=== PATIENT | female | born 1950 | race Caucasian/White ===

== ENCOUNTER 2020-04-03 18:14 | Emergency (ER) | payer MEDICARE, OTHER ==
--- NOTE | 2020-04-03 18:15 | ERPHSYRPT ---
- History of Present Illness Time Seen by Provider: 04/03/20 18:15 Source: patient, EMS Exam Limitations: no limitations Physician History: This is a 69-year-old white female who has a history of hypertension and is an insulin dependent diabetic, and presents with head and facial injuries after she slipped and fell on concrete. Patient was wearing flip-flops on the ground was wet. Patient was brought in to the emergency department by ambulance. Patient had initially requested to go to [facility]. 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 Patient was brought into the emergency department by the ambulance service with a c- collar in place. Patient has obvious hematoma to the right forehead and abrasions of her nose and upper lip. She complains of pain in the left shoulder and right hip and femur. Patient is on Plavix and aspirin. Patient arrives to the emergency department alert and oriented and moving all her extremities. Occurred: just prior to arrival Reason for Fall: slipped Injuries/Pain Location: head, face, neck, upper extremity (Left shoulder), lower extremity (Right hip and upper leg) Loss of Consciousness: no loss of consciousness Severity of Pain-Max: moderate Severity of Pain-Current: moderate Modifying Factors: Improves With: movement Associated Symptoms (Fall): extremity injury, headache, neck pain, shortness of breath (Now resolved), No confusion, No chest pain, No seizures Allergies/Adverse Reactions: ceftriaxone [From Rocephin] Allergy (Severe, Verified 04/03/20 18:32) codeine Allergy (Verified 06/25/13 20:31) diphenhydramine HCl [From Benadryl] Allergy (Verified 06/25/13 20:31) hydromorphone HCl [From Dilaudid] Allergy (Verified 06/25/13 20:31) morphine Adverse Reaction (Mild, Verified 04/03/20 18:32) Home Medications: Furosemide 40 mg [Lasix 40 MG] 40 mg PO DAILY 06/25/13 [History] Gabapentin 300 mg [Neurontin 300 mg] 100 mg PO DAILY 06/25/13 [History] Metformin HCl 1000 mg [Glucophage 1000 MG] 1,000 mg PO BID 06/25/13 [History] Zolpidem Tartrate 10 mg [Ambien 10 MG] 10 mg PO HS 06/25/13 [History] Atorvastatin Calcium [Lipitor] 20 mg PO HS 04/03/20 [History] Clopidogrel Bisulfate [Clopidogrel] 75 mg PO DAILY 04/03/20 [History] Diltiazem HCl [Cardizem LA] 300 mg PO DAILY 04/03/20 [History] Duloxetine HCl 40 mg PO BID 04/03/20 [History] Fluticasone/Umeclidin/Vilanter [Trelegy Ellipta 100-62.5-25] 1 each IH DAILY [History] Hydralazine HCl 50 mg PO Q8H 04/03/20 [History] Insulin NPH Human Isophane [Novolin N] 25 units SQ BID 04/03/20 [History] Isosorbide Mononitrate 30 mg [Imdur 30 MG] 30 mg PO DAILY 04/03/20 [History ] Potassium Chloride 10 Meq Tab* [Klor Con 10 MEQ] 10 meq PO DAILY 04/03/20 [ History] Hx Tetanus, Diphtheria Vaccination/Date Given: (UNKNOWN) Hx Influenza Vaccination/Date Given: Yes Hx Pneumococcal Vaccination/Date Given: Yes Travel Risk - International Travel Have you traveled outside of the country in past 3 weeks: No Have you or anyone close to you been diagnosed with or: No Do your reside in a community with a known COVID-19 case?: Yes If Yes where:: [facility] - Coronavirus Screening Has patient experienced Coronavirus symptoms: No - Review of Systems Constitutional: No Symptoms Eyes: No Symptoms Ears, Nose, & Throat: No Symptoms Respiratory: No Symptoms, Dyspnea (Resolved) Cardiac: No Symptoms Abdominal/Gastrointestinal: No Symptoms Genitourinary Symptoms: No Symptoms Musculoskeletal: Neck Pain (Left shoulder and right hip), Fall, Injury Skin: Other (Hematoma right forehead. Abrasion of her nose and upper lip) Neurological: No Symptoms Psychological: No Symptoms Endocrine: No Symptoms Hematologic/Lymphatic: No Symptoms Immunological/Allergic: No Symptoms All Other Systems: Reviewed and Negative - Past Medical History Pertinent Past Medical History: Yes Neurological History: Stroke, Other Cardiac History: Congestive Heart Failure, Hypertension Respiratory History: COPD Endocrine Medical History: Diabetes Type II Musculoskeletal History: Arthritis Psycho-Social History: Depression Other Medical History: APHASIA - Past Surgical History Past Surgical History: Yes Neuro Surgical History: Other Gastrointestinal: Appendectomy, Cholecystectomy Female Surgical History: Hysterectomy - Social History Smoking Status: Former smoker Exposure to second hand smoke: No Drug Use: none Patient Lives Alone: No - Nursing Vital Signs Nursing Vital Signs: Initial Vital Signs Pulse Rate 78 04/03/20 18:18 Blood Pressure 139/66 04/03/20 18:18 O2 Sat by Pulse Oximetry 95 04/03/20 18:18 Pain Scale Pain Intensity 10 - [place] Coma Score Best Eye Response (Elia): (4) open spontaneously Best Verbal Response (Elia): (5) oriented Best Motor Response (Fayette): (6) obeys commands Elia Total: 15 - Physical Exam General Appearance: mild distress, alert, anxiety, obese Head Injury: contusions, ecchymosis, swelling, tenderness Eye Exam: PERRL/EOMI, eyes nml inspection ENT Exam: airway nml, other (Upper lip abrasion no obvious lacerations) Neck Exam: trachea midline, pain on movement of neck, c-collar in place Respiratory/Chest Exam: normal breath sounds, No chest tenderness, No respiratory distress, No ecchymosis, No crepitus, No rhonchi, No wheezing Cardiovascular Exam: normal heart sounds, regular rate/rhythm, normal peripheral pulses, No murmur Gastrointestinal Exam: soft, normal bowel sounds, No tenderness, No guarding, No rebound Rectal Exam: not done Back Exam: normal inspection, normal range of motion, No CVA tenderness, No vertebral tenderness Extremity Exam: normal inspection, normal range of motion, capillary refill <3 sec, pelvis stable, hip tenderness (Right side), tenderness (Left shoulder and right hip) Neurologic Exam: alert, oriented x 3, cooperative, 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 as 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, normal mood/affect, nml cerebellar function, nml station & gait, sensation nml Skin Exam: abrasion SpO2 Interpretation: normal O2 Delivery: Room Air - Course Nursing assessment & vital signs reviewed: Yes EKG Interpreted by Me: RATE (62), A-fib, Non-specific ST Changes, Other (No comparison EKG available) Ordered Tests: Active Orders 24 hr Category Date Time Status EKG-ER Only STAT Care 04/03/20 18:37 Active IV Insertion STAT Care 04/03/20 18:37 Active CERVICAL SPINE WO CONTRAST [CT] Stat Exams 04/03/20 18:15 Taken CHEST 1 VIEW (PORTABLE) Stat Exams 04/03/20 18:27 Taken FACIAL BONES WO CONTRAST [CT] Stat Exams 04/03/20 18:15 Taken FEMUR Stat Exams 04/03/20 18:16 Taken HEAD WITHOUT CONTRAST [CT] Stat Exams 04/03/20 18:15 Taken HIP UNI (2V) INCL PEL IF DONE Stat Exams 04/03/20 18:16 Taken SHOULDER Routine Exams 04/03/20 19:43 Taken SHOULDER Stat Exams 04/03/20 18:18 Taken CBC W DIFF Stat Lab 04/03/20 19:50 Completed CMP Stat Lab 04/03/20 19:50 Completed PROTIME WITH INR Stat Lab 04/03/20 19:50 Completed TROPONIN Q3H Lab 04/03/20 19:50 Received TROPONIN Q3H Lab 04/03/20 21:45 Ordered Lab/Rad Data: Laboratory Result Diagrams 04/03/20 19:50 04/03/20 19:50 Laboratory Results 04/03/20 04/03/20 04/03/20 Range/Units 19:50 19:50 19:50 WBC 9.0 (4.0-10.5) K/mm3 RBC 4.47 (4.1-5.4) M/mm3 Hgb 12.4 (12.0-16.0) gm/dl Hct 37.7 (35-47) % MCV 84.3 (78-100) fl MCH 27.7 (26-32) pg MCHC 32.9 (32-36) g/dl RDW 15.4 H (11.5-14.0) % Plt Count 250 (150-450) K/mm3 MPV 9.7 (7.5-11.0) fl Gran % 70.7 H (36.0-66.0) % Eos # (Auto) 0.36 (0-0.5) Absolute Lymphs (auto) 1.34 (1.0-4.6) Absolute Monos (auto) 0.89 (0.0-1.3) Lymphocytes % 15.0 L (24.0-44.0) % Monocytes % 9.9 (0.0-12.0) % Eosinophils % 4.0 (0.00-5.0) % Basophils % 0.4 (0.0-0.4) % Absolute Granulocytes 6.33 (1.4-6.9) Basophils # 0.04 (0-0.4) PT 12.0 (9.95-12.35) SECONDS INR 1.06 (0.8-3.0) Sodium 139 (137-145) mmol/L Potassium 4.0 (3.5-5.1) mmol/L Chloride 103 (98-107) mmol/L Carbon Dioxide 31 H (22-30) mmol/L Anion Gap 10.0 (5-15) MEQ/L BUN 16 (7-17) mg/dL Creatinine 0.69 (0.52-1.04) mg/dL Estimated GFR > 60.0 ML/MIN Glucose 121 H (74-106) mg/dL Calcium 8.9 (8.4-10.2) mg/dL Total Bilirubin 0.30 (0.2-1.3) mg/dL AST 17 (14-36) U/L ALT 16 (0-35) U/L Alkaline Phosphatase 74 (38-126) U/L Serum Total Protein 6.2 L (6.3-8.2) g/dL Albumin 3.5 (3.5-5.0) g/dL - Progress Progress: improved, pain not gone completely, re-examined Progress Note: 04/03/20 19:43 Chest x-ray reveals cardiomegaly. There is no acute intrathoracic process. There is no widened mediastinum present. X-ray of the right shoulder reveals no evidence of any acute fracture or dislocation. X-ray of the pelvis reveals no acute fracture or dislocation. X-ray of the right hip reveals no evidence of any acute fracture or dislocation. X-ray of the right femur reveals no acute fracture or dislocation. 04/03/20 20:27 CAT scan of the head reveals no intracranial abnormality. CAT scan of the cervical spine reveals no acute fractures or subluxations. CAT scan of the facial bones reveals no fractures. 04/03/20 20:32 Patient desires medication for pain. However, she is allergic to codeine, morphine, Dilaudid. She is unsure of what she can take. i will give a low dose Demerol with Zofran intravenously Counseled pt/family regarding: lab results, diagnosis, need for follow-up, rad results - Departure Departure Disposition: Home Clinical Impression: Fall, Facial abrasion, Facial hematoma Condition: Stable Critical Care Time: No Referrals: LUIS MENDEZ MD [Primary Care Provider] - Additional Instructions: drink plenty of fluids. take your medications as prescribed. keep all abrasion sites clean with soap and water. cover abrasion sites with antibiotic ointment of choice once daily. follow up with primary doctor for persistent symptoms.
[2020-04-03 20:05] LABS: Absolute Neutrophil Ct (ANC) 6.33 (1.4-6.9); BASOPHIL % 0.4 % (0.0-0.4); Basophil (Absolute #) 0.04 (0-0.4); Eosinophil (Absolute #) 0.36 (0-0.5); Hematocrit 37.7 % (35-47); Hemoglobin 12.4 gm/dl (12.0-16.0); Lymphocyte (Absolute #) 1.34 (1.0-4.6); Mean Cell Volume 84.3 fl (78-100); Mean Corpuscular Hemoglobin 27.7 pg (26-32); Mean Corpuscular Hgb Concent. 32.9 g/dl (32-36); Mean Platelet Volume 9.7 fl (7.5-11.0); Monocyte (Absolute #) 0.89 (0.0-1.3); Monocytes % 9.9 % (0.0-12.0); Neutrophil % 70.7 % (36.0-66.0); Platelet Count 250 K/mm3 (150-450); Red Blood Count 4.47 M/mm3 (4.1-5.4); Red Cell Distribution Width 15.4 % (11.5-14.0)
[2020-04-03 20:17] LABS: INR 1.06 (0.8-3.0)
[2020-04-03 20:25] LABS: ALBUMIN 3.5 g/dL (3.5-5.0); ALKALINE PHOSPHATASE 74 U/L (38-126); BLOOD UREA NITROGEN 16 mg/dL (7-17); CHLORIDE 103 mmol/L (98-107); Calcium 8.9 mg/dL (8.4-10.2); Carbon Dioxide 31 mmol/L (22-30); Creatinine 1 0.69 mg/dL (0.52-1.04); Glucose 121 mg/dL (74-106); SGOT/AST 17 U/L (14-36); SGPT/ALT 16 U/L (0-35); SODIUM 139 mmol/L (137-145); Total Protein 6.2 g/dL (6.3-8.2)
[2020-04-03] MEDS ORDERED: DEMEROL 25MG SYRINGE IV ONE (20:36)
[2020-04-03] MEDS ORDERED: Zofran 4 MG/2 ML VIAL IV ONE (20:36)
[2020-04-03] MEDS ORDERED: DEMEROL 25MG SYRINGE ONE (20:42)
[2020-04-03] MEDS ORDERED: Zofran 4 MG/2 ML VIAL ONE (20:42)
[2020-04-03] MEDS ORDERED: BACIGUENT PACKET TP ONE (21:05)
[2020-04-03] MEDS ORDERED: BACIGUENT PACKET ONE (21:08)
[2020-04-03 21:43] VITALS: BP 143/51; PULSE 60; O2SAT 92
--- NOTE | 2020-04-04 08:36 | XRAY ---
Indication: Right head injury following fall. Multiple contiguous axial images obtained through the head without contrast. Comparison: June 25, 2013. Stable right cerebral aneurysm clipping with large focus right temporoparietal encephalomalacia and overlying craniotomy. No acute intracranial hemorrhage, hydrocephalus, or mass effect. Age-appropriate global atrophy and minimal periventricular degenerative micro-ischemia. Fourth ventricle is midline. Small right frontal scalp hematoma. Remaining bony calvarium intact. Mild mucosal thickening of both ethmoid sinuses and 1.1 cm right maxillary sinus polyp/retention cyst. Remaining visualized paranasal sinuses and mastoid air cells are clear. CT facial bones and CT cervical spine reported separately. Impression: 1. Right frontal scalp hematoma. No underlying fracture or acute intracranial abnormalities. 2. Stable right cerebral aneurysm clipping with right temporoparietal encephalomalacia and craniotomy. 3. Atrophy and degenerative micro-ischemia within normal limits for patient's age. 4. Incidental paranasal sinus disease.
--- NOTE | 2020-04-04 08:38 | XRAY ---
Indication: Right head injury following fall. Multiple contiguous axial images obtained through the facial bones. Sagittal and coronal reformatted images obtained. Comparison: None. A few bilateral dental amalgams produces beam artifact. Small right frontal scalp hematoma. No acute fracture or suspicious bony lesions. Orbits including roof, case, and floors intact. Mild mucosal thickening of both ethmoid sinuses and 1.1 cm right maxillary sinus polyp/retention cyst. Remaining paranasal sinuses and nasal passages are clear. Mild nasal septal deviation to the left and small right middle turbinate teagan bullosa. Visualized noncontrasted soft tissues are unremarkable. CT head and CT cervical spine reported separately. Impression: 1. Right frontal scalp hematoma. No facial bone fracture. 2. Incidental paranasal sinus disease, nasal septal deviation, and right middle turbinate teagan bullosa.
--- NOTE | 2020-04-04 08:40 | XRAY ---
Indication: Right head injury following fall. Multiple contiguous axial images obtained through the cervical spine. Sagittal and coronal reformatted images obtained. Comparison: None. Axial images negative for acute fracture, suspicious bony lesions, or spinal canal stenosis. Mild/moderate C3-C7 degenerative endplate spurring. Also mild multilevel bilateral degenerative facet hypertrophy. Sagittal and coronal reformatted images demonstrate normal alignment with mild C5-T1 disc space narrowing. No acute compression fracture, subluxation, or jumped facet. Normal appearing craniocervical junction. Visualized noncontrasted soft tissues demonstrates scattered carotid calcifications bilaterally, mild enlarged heterogeneous thyroid gland, and partially visualized left pacemaker leads. Lung apices are clear. CT head and CT facial bones reported separately. Impression: 1. Negative acute fracture/subluxation. 2. Multilevel degenerative changes and mildly enlarged heterogeneous thyroid gland.
--- NOTE | 2020-04-04 08:44 | XRAY ---
Indication: Status post fall. Comparison: June 25, 2013. Portable apical lordotic chest again demonstrates borderline cardiomegaly, left pacemaker, lingula infiltrate/atelectasis, right midlung fibrosis/scarring, and a few calcified granulomas. Remaining heart and lungs unremarkable. Bony thorax intact again with mild osteopenia and degenerative changes.
--- NOTE | 2020-04-04 08:45 | XRAY ---
Indication: Pain following fall. Comparison: None 3 view left shoulder demonstrates osteopenia, mild AC degenerative arthropathy, minimal left carotid calcifications, and partially visualized pacemaker/leads. No other bony, articular, or soft tissue abnormalities.
--- NOTE | 2020-04-04 08:47 | XRAY ---
Indication: Pain following fall. Comparison: None 2 view right femur demonstrates mild osteopenia, minimal greater trochanter spurring, mild/moderate tricompartmental knee degenerative changes, and mild scattered vascular calcifications. No other bony, articular, or soft tissue abnormalities.
--- NOTE | 2020-04-04 08:49 | XRAY ---
Indication: Pain following fall. Comparison: None AP pelvis and 2 view right hip demonstrates mild osteopenia, minimal bilateral greater trochanter spurring, mild/moderate lumbar degenerative spondylosis, and mild scattered vascular calcifications. No other bony, articular, or soft tissue abnormalities.
--- NOTE | 2020-04-04 08:49 | XRAY ---
Indication: Pain following fall. Comparison: None 3 view right shoulder demonstrates mild osteopenia, moderate AC degenerative arthropathy with inferior spurring, and a few right lung calcified granulomas. No other bony, articular, or soft tissue abnormalities.
== END 2020-04-03 21:56 | disposition home or self-care (01) ==
LOC: ED 18:14
DX: S00.31XA Abrasion of nose, initial encounter (principal); S00.511A Abrasion of lip, initial encounter; S00.81XA Abrasion of other part of head, initial encounter; W01.198A Fall on same level from slipping, tripping and stumbling with subsequent striking against other object, initial encounter; Y92.9 Unspecified place or not applicable; I10 Essential (primary) hypertension; Z79.82 Long term (current) use of aspirin; R51 Headache; M54.2 Cervicalgia; M25.512 Pain in left shoulder; M25.551 Pain in right hip; F32.9 Major depressive disorder, single episode, unspecified; I50.9 Heart failure, unspecified; J44.9 Chronic obstructive pulmonary disease, unspecified; M19.90 Unspecified osteoarthritis, unspecified site; E11.9 Type 2 diabetes mellitus without complications; Z79.899 Other long term (current) drug therapy
CPT/HCPCS: 36415; 70450; 70486; 71045; 72125; 73030; 73502; 73552; 80053; 84484; 85025; 85610; 93005; 96374; 96375; 99284; J2175; J2405; A9270-GY

== ENCOUNTER 2021-08-09 14:22 | Inpatient (IN) | payer MEDICARE, OTHER ==
[2021-08-09 15:06] LABS: Appearance SLIGHTLY CLOUDY (CLEAR); Bilirubin NEGATIVE (NEGATIVE); Blood NEGATIVE Ery/ul (0-5); Epithelial Cells RARE /HPF (FEW); Glucose NEGATIVE (NEGATIVE); Ketones NEGATIVE (NEGATIVE); Leukocyte Esterase NEGATIVE (NEGATIVE); Nitrite NEGATIVE (NEGATIVE); Protein,Urine Dip NEGATIVE (Negative); Specific Gravity 1.017 (1.005-1.025); Urobilinogen 4 mg/dL (0-1)
[2021-08-09 15:19] LABS: Amphetamine,Urine NEGATIVE (NEGATIVE); Barbiturate,Urine NEGATIVE (NEGATIVE); Benzodiazepine,Urine NEGATIVE (NEGATIVE); Cocaine,Urine NEGATIVE (NEGATIVE); Methadone,Urine NEGATIVE (NEGATIVE); Opiate,Urine NEGATIVE (NEGATIVE); PCP,Urine NEGATIVE (NEGATIVE); THC,Urine NEGATIVE (NEGATIVE)
--- NOTE | 2021-08-09 15:22 | ERPHSYRPT ---
- History of Present Illness Time Seen by Provider: 08/09/21 15:20 Source: patient Exam Limitations: no limitations Patient Subjective Stated Complaint: here for lower back pain and lung pain Triage Nursing Assessment: pt alert, arrived per ambulance for lower back she denies any injury and states its chronic she also states lung pain but denies sob or cough Physician History: Patient is 70-year-old female with significant past medical history of hypertension diabetes came to the emergency room with multiple problems including lung pain generalized body pain shortness of breath and not feeling well. She is unable to define exact location of pain. She denies any fever nausea vomiting diarrhea constipation chest pain headache dizziness. Timing/Duration: day(s) (few days) Severity: moderate Associated Symptoms: denies symptoms Allergies/Adverse Reactions: ceftriaxone [From Rocephin] Allergy (Severe, Verified 08/09/21 14:27) codeine Allergy (Verified 08/09/21 14:27) diphenhydramine HCl [From Benadryl] Allergy (Verified 08/09/21 14:27) hydromorphone HCl [From Dilaudid] Allergy (Verified 08/09/21 14:27) morphine Adverse Reaction (Mild, Verified 08/09/21 14:27) Home Medications: Furosemide 40 mg [Lasix 40 MG] 40 mg PO DAILY 06/25/13 [History] Metformin HCl 1000 mg [Glucophage 1000 MG] 1,000 mg PO BID 06/25/13 [History] Zolpidem Tartrate 10 mg [Ambien 10 MG] 10 mg PO HS 06/25/13 [History] Atorvastatin Calcium [Lipitor] 20 mg PO HS 04/03/20 [History] Clopidogrel Bisulfate [Clopidogrel] 75 mg PO DAILY 04/03/20 [History] Diltiazem HCl [Cardizem LA] 300 mg PO DAILY 04/03/20 [History] Duloxetine HCl 40 mg PO BID 04/03/20 [History] Fluticasone/Umeclidin/Vilanter [Trelegy Ellipta 100-62.5-25] 1 each IH DAILY 04/03/20 [History] Hydralazine HCl 50 mg PO Q8H 04/03/20 [History] Insulin NPH Human Isophane [Novolin N] 25 units SQ BID 04/03/20 [History] Isosorbide Mononitrate 30 mg [Imdur 30 MG] 30 mg PO DAILY 04/03/20 [History] Potassium Chloride 10 Meq Tab* [Klor Con 10 MEQ] 10 meq PO DAILY 04/03/20 [History] Hx Tetanus, Diphtheria Vaccination/Date Given: (UNKNOWN) Hx Influenza Vaccination/Date Given: Yes Hx Pneumococcal Vaccination/Date Given: Yes Travel Risk - International Travel Have you traveled outside of the country in past 3 weeks: No - Coronavirus Screening Are you exhibiting any of the following symptoms?: No Close contact with a COVID-19 positive Pt in past 14-21 Days: No - Vaccine Status Have you recieved a Covid-19 vaccination: Yes [employer]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 Dates if Unknown: ? - Review of Systems Constitutional: Lethargy, Malaise, Weakness Eyes: No Symptoms Ears, Nose, & Throat: No Symptoms Respiratory: No Cough, No Dyspnea, No Dyspnea on Exertion (EATON) Cardiac: No Chest Pain, No Edema, No Syncope Abdominal/Gastrointestinal: No Abdominal Pain, No Nausea, No Vomiting, No Diarrhea Genitourinary Symptoms: No Dysuria Musculoskeletal: Back Pain, Myalgias, No Neck Pain, No Deformity, No Fall Skin: No Symptoms, No Rash Neurological: Lethargy, No Dizziness, No Focal Weakness, No Sensory Changes Psychological: No Symptoms Endocrine: No Symptoms Hematologic/Lymphatic: No Symptoms Immunological/Allergic: No Symptoms All Other Systems: Reviewed and Negative - Past Medical History Pertinent Past Medical History: Yes Neurological History: Stroke, Other Cardiac History: Congestive Heart Failure, Hypertension Respiratory History: COPD Endocrine Medical History: Diabetes Type II Musculoskeletal History: Arthritis Psycho-Social History: Depression Other Medical History: APHASIA - Past Surgical History Past Surgical History: Yes Neuro Surgical History: Other Gastrointestinal: Appendectomy, Cholecystectomy Female Surgical History: Hysterectomy - Social History Smoking Status: Former smoker Exposure to second hand smoke: No Drug Use: none Patient Lives Alone: No - Female History Hx Last Menstrual Period: post Hx Now: No - Nursing Vital Signs Nursing Vital Signs: Initial Vital Signs Temperature 98.5 F 08/09/21 14:23 Pulse Rate 78 08/09/21 14:23 Respiratory Rate 20 08/09/21 14:23 Blood Pressure 174/105 08/09/21 14:23 O2 Sat by Pulse Oximetry 93 L 08/09/21 14:23 Pain Scale Pain Intensity [] 10 Pain Intensity 6 - Physical Exam General Appearance: mild distress, alert Eye Exam: PERRL/EOMI, eyes nml inspection Ears, Nose, Throat Exam: normal ENT inspection, TMs normal, pharynx normal, moist mucous membranes Neck Exam: normal inspection, non-tender, supple, full range of motion Respiratory Exam: diminished breath sounds, crackles/rales, rhonchi, wheezing, No respiratory distress Cardiovascular Exam: regular rate/rhythm, normal heart sounds, normal peripheral pulses Gastrointestinal/Abdomen Exam: soft, normal bowel sounds, No tenderness, No mass Back Exam: normal inspection, normal range of motion, No CVA tenderness, No vertebral tenderness Extremity Exam: normal inspection, normal range of motion, pelvis stable Neurologic Exam: alert, oriented x 3, cooperative, No motor deficits Skin Exam: normal color, warm, dry, No rash Lymphatic Exam: No adenopathy SpO2 Interpretation: borderline oxygenation SpO2: 93 O2 Delivery: Room Air - Course Nursing assessment & vital signs reviewed: Yes - Radiology Exams Chest X-ray Interpretation: Reviewed by me Ordered Tests: Active Orders 24 hr Category Date Time Status CHEST 1 VIEW (PORTABLE) Stat Exams 08/09/21 15:38 Taken CBC W DIFF Stat Lab 08/09/21 15:10 Completed CMP Stat Lab 08/09/21 15:10 Completed UA W/RFX UR CULTURE Stat Lab 08/09/21 15:01 Completed Urine Triage Profile Stat Lab 08/09/21 15:01 Completed Transfer Order Routine Transfer 08/09/21 Ordered Medication Summary Generic Name Dose Route Start Last Admin Trade Name Freq PRN Reason Stop Dose Admin Levofloxacin/Dextrose 500 mg in 100 mls @ 100 mls/hr 08/09/21 16:05 08/09/21 16:22 Levofloxacin 500mg/100ml D5w IV 08/09/21 17:04 100 mls/hr STAT STA 100 mls/hr Administration Discontinued Medications Generic Name Dose Route Start Last Admin Trade Name Freq PRN Reason Stop Dose Admin Levofloxacin/Dextrose Confirm 08/09/21 16:22 Levofloxacin 500mg/100ml D5w Administered 08/09/21 16:23 Dose 500 mg in 100 mls @ ud IV .[facility] Lab/Rad Data: Laboratory Result Diagrams 08/09/21 15:10 08/09/21 15:10 Laboratory Results 08/09/21 08/09/21 08/09/21 Range/Units 15:10 15:10 15:01 WBC 16.4 H (4.0-10.5) K/mm3 RBC 4.55 (4.1-5.4) M/mm3 Hgb 12.0 (12.0-16.0) gm/dl Hct 38.3 (35-47) % MCV 84.2 (78-100) fl MCH 26.4 (26-32) pg MCHC 31.3 L (32-36) g/dl RDW 16.2 H (11.5-14.0) % Plt Count 222 (150-450) K/mm3 MPV 9.4 (7.5-11.0) fl Gran % 83.2 H (36.0-66.0) % Eos # (Auto) 0.09 (0-0.5) Absolute Lymphs (auto) 1.05 (1.0-4.6) Absolute Monos (auto) 1.61 H (0.0-1.3) Lymphocytes % 6.4 L (24.0-44.0) % Monocytes % 9.8 (0.0-12.0) % Eosinophils % 0.5 (0.00-5.0) % Basophils % 0.1 (0.0-0.4) % Absolute Granulocytes 13.66 H (1.4-6.9) Basophils # 0.02 (0-0.4) Sodium 139 (137-145) mmol/L Potassium 3.6 (3.5-5.1) mmol/L Chloride 98 (98-107) mmol/L Carbon Dioxide 35 H (22-30) mmol/L Anion Gap 9.6 (5-15) MEQ/L BUN 19 H (7-17) mg/dL Creatinine 0.93 (0.52-1.04) mg/dL Estimated GFR > 60.0 ML/MIN Glucose 92 (74-106) mg/dL Calcium 9.2 (8.4-10.2) mg/dL Total Bilirubin 0.60 (0.2-1.3) mg/dL AST 24 (14-36) U/L ALT 18 (0-35) U/L Alkaline Phosphatase 66 (38-126) U/L Serum Total Protein 6.7 (6.3-8.2) g/dL Albumin 3.9 (3.5-5.0) g/dL Urine Color (YELLOW) Urine Appearance (CLEAR) Urine pH (5-6) Ur Specific [place] (1.005-1.025) Urine Protein (Negative) Urine Ketones (NEGATIVE) Urine Blood (0-5) [place]/ul Urine Nitrite (NEGATIVE) Urine Bilirubin (NEGATIVE) Urine Urobilinogen (0-1) mg/dL Ur Leukocyte Esterase (NEGATIVE) Urine WBC (Auto) (0-5) /HPF Urine RBC (Auto) (0-2) /HPF U Epithel Cells (Auto) (FEW) /HPF Urine Bacteria (Auto) (NEGATIVE) /HPF Urine Culture Reflexed (NO) Urine Glucose (NEGATIVE) mg/dL Urine Opiates Level NEGATIVE (NEGATIVE) Ur Methadone NEGATIVE (NEGATIVE) Urine Barbiturates NEGATIVE (NEGATIVE) Ur Phencyclidine (PCP) NEGATIVE (NEGATIVE) Urine Amphetamine NEGATIVE (NEGATIVE) U Benzodiazepine Level NEGATIVE (NEGATIVE) Urine Cocaine NEGATIVE (NEGATIVE) Urine Marijuana (THC) NEGATIVE (NEGATIVE) Slides for Path Review YES 08/09/21 Range/Units 15:01 WBC (4.0-10.5) K/mm3 RBC (4.1-5.4) M/mm3 Hgb (12.0-16.0) gm/dl Hct (35-47) % MCV (78-100) fl MCH (26-32) pg MCHC (32-36) g/dl RDW (11.5-14.0) % Plt Count (150-450) K/mm3 MPV (7.5-11.0) fl Gran % (36.0-66.0) % Eos # (Auto) (0-0.5) Absolute Lymphs (auto) (1.0-4.6) Absolute Monos (auto) (0.0-1.3) Lymphocytes % (24.0-44.0) % Monocytes % (0.0-12.0) % Eosinophils % (0.00-5.0) % Basophils % (0.0-0.4) % Absolute Granulocytes (1.4-6.9) Basophils # (0-0.4) Sodium (137-145) mmol/L Potassium (3.5-5.1) mmol/L Chloride (98-107) mmol/L Carbon Dioxide (22-30) mmol/L Anion Gap (5-15) MEQ/L BUN (7-17) mg/dL Creatinine (0.52-1.04) mg/dL Estimated GFR ML/MIN Glucose (74-106) mg/dL Calcium (8.4-10.2) mg/dL Total Bilirubin (0.2-1.3) mg/dL AST (14-36) U/L ALT (0-35) U/L Alkaline Phosphatase (38-126) U/L Serum Total Protein (6.3-8.2) g/dL Albumin (3.5-5.0) g/dL Urine Color YELLOW (YELLOW) Urine Appearance SLIGHTLY CLOUDY (CLEAR) Urine pH 5.0 (5-6) Ur Specific [place] 1.017 (1.005-1.025) Urine Protein NEGATIVE (Negative) Urine Ketones NEGATIVE (NEGATIVE) Urine Blood NEGATIVE (0-5) [place]/ul Urine Nitrite NEGATIVE (NEGATIVE) Urine Bilirubin NEGATIVE (NEGATIVE) Urine Urobilinogen 4 (0-1) mg/dL Ur Leukocyte Esterase NEGATIVE (NEGATIVE) Urine WBC (Auto) NONE (0-5) /HPF Urine RBC (Auto) NONE (0-2) /HPF U Epithel Cells (Auto) RARE (FEW) /HPF Urine Bacteria (Auto) NONE (NEGATIVE) /HPF Urine Culture Reflexed NO (NO) Urine Glucose NEGATIVE (NEGATIVE) mg/dL Urine Opiates Level (NEGATIVE) Ur Methadone (NEGATIVE) Urine Barbiturates (NEGATIVE) Ur Phencyclidine (PCP) (NEGATIVE) Urine Amphetamine (NEGATIVE) U Benzodiazepine Level (NEGATIVE) Urine Cocaine (NEGATIVE) Urine Marijuana (THC) (NEGATIVE) Slides for Path Review - Progress Progress: unchanged Discussed with : Russell Will see patient in: hospital (observation) Counseled pt/family regarding: lab results, diagnosis, need for follow-up, rad results - Departure Departure Disposition: Observation Clinical Impression: Pneumonia Qualifiers: Pneumonia type: due to group B Streptococcus Laterality: right Lung location: upper lobe of lung Qualified Code(s): J15.3 - Pneumonia due to streptococcus, group B Condition: Fair Critical Care Time: Yes Critical Care Time(excluding separately billable procedures): Critical 30-74 mins Referrals: LUIS MENDEZ MD [Primary Care Provider] - Instructions: Pneumonia, Adult (DC)
[2021-08-09 15:32] LABS: Absolute Neutrophil Ct (ANC) 13.66 (1.4-6.9); BASOPHIL % 0.1 % (0.0-0.4); Basophil (Absolute #) 0.02 (0-0.4); Eosinophil % 0.5 % (0.00-5.0); Eosinophil (Absolute #) 0.09 (0-0.5); Hematocrit 38.3 % (35-47); Lymphocyte (Absolute #) 1.05 (1.0-4.6); Lymphocytes % 6.4 % (24.0-44.0); Mean Cell Volume 84.2 fl (78-100); Mean Corpuscular Hemoglobin 26.4 pg (26-32); Mean Corpuscular Hgb Concent. 31.3 g/dl (32-36); Mean Platelet Volume 9.4 fl (7.5-11.0); Monocyte (Absolute #) 1.61 (0.0-1.3); Monocytes % 9.8 % (0.0-12.0); Neutrophil % 83.2 % (36.0-66.0); Platelet Count 222 K/mm3 (150-450); Red Blood Count 4.55 M/mm3 (4.1-5.4); Red Cell Distribution Width 16.2 % (11.5-14.0); White Blood Count 16.4 K/mm3 (4.0-10.5)
[2021-08-09 15:42] LABS: ALBUMIN 3.9 g/dL (3.5-5.0); ALKALINE PHOSPHATASE 66 U/L (38-126); ANION GAP 9.6 MEQ/L (5-15); BLOOD UREA NITROGEN 19 mg/dL (7-17); CHLORIDE 98 mmol/L (98-107); Calcium 9.2 mg/dL (8.4-10.2); Carbon Dioxide 35 mmol/L (22-30); Creatinine 1 0.93 mg/dL (0.52-1.04); EST GLOMERULAR FILTRATION RATE > 60.0 ML/MIN; Glucose 92 mg/dL (74-106); Potassium 3.6 mmol/L (3.5-5.1); SGOT/AST 24 U/L (14-36); SGPT/ALT 18 U/L (0-35); SODIUM 139 mmol/L (137-145); Total Protein 6.7 g/dL (6.3-8.2)
[2021-08-09 16:01] LABS: Slide Review 1 YES
[2021-08-09] MEDS ORDERED: Levofloxacin 500MG/100ML D5W 500 MG/100 ML BAG IV STA (16:05)
[2021-08-09] MEDS ORDERED: Levofloxacin 500MG/100ML D5W 500 MG/100 ML BAG IV ONE (16:22)
[2021-08-09 16:44] LABS: INFLUENZA A NEGATIVE (NEGATIVE); INFLUENZA B NEGATIVE (NEGATIVE); RESPIRATORY SYNCTIAL VIRUS NEGATIVE (Negative); SARS-CoV-2 Xpert Express NEGATIVE (NEGATIVE)
[2021-08-09] MEDS ORDERED: Sodium Chloride 0.9% 1000 ML 1,000 ML IV SCH (17:12)
[2021-08-09] MEDS: TYLENOL 325 MG PO PRN (17:30)
[2021-08-09] MEDS ORDERED: DUONEB 0.5-3 MG/3 ml Neb IH ONE (17:31)
[2021-08-09] MEDS: DUONEB 0.5-3 MG/3 ml Neb IH SCH ×2 (17:33→22:12)
[2021-08-09 18:03] LABS: A-aADO2 138; ABG HEMOGLOBIN 12.3; ABG POTASSIUM 3.3 (3.5-5.1); ABG SITE RIGHT BRACHIAL; ARTERIAL BLD GAS O2 SATURATION 93.6 % (95-100); ARTERIAL BLOOD GAS BASE EXCESS 7.2 (-2.0-2.0); ARTERIAL BLOOD GAS FIO2 36 %; ARTERIAL BLOOD GAS PCO2 48 mmHg (35-45); ARTERIAL BLOOD GAS PO2 59 mmHg (75-100); ARTERIAL BLOOD GAS pH 7.44 (7.35-7.45); CARBOXYHEMOGLOBIN 1.6 % THgb (0.0-6.9); HCO3- 32.6 (22-28); HGB O2 SAT 91.4 g/dF (94-100); Methhemoglobin 0.7 % (1.4-1.5)
[2021-08-09] MEDS: Ativan 2 MG/1 ML VIAL IV PRN ×3 (18:10→23:45)
[2021-08-09] MEDS ORDERED: Advair Hfa 115/21 Common canister IH SCH (19:00)
[2021-08-10] MEDS: Ativan 2 MG/1 ML VIAL IV PRN ×5 (01:54→21:43)
[2021-08-10] MEDS ORDERED: SUBLIMAZE 100 MCG/2 ML IV PRN (02:28)
[2021-08-10] MEDS: DUONEB 0.5-3 MG/3 ml Neb IH SCH ×2 (02:30→07:02)
[2021-08-10 03:07] LABS: A-aADO2 164; ABG HEMOGLOBIN 11.5; ABG POTASSIUM 3.2 (3.5-5.1); ABG SITE RIGHT BRACHIAL; ARTERIAL BLD GAS O2 SATURATION 98.5 % (95-100); ARTERIAL BLD GAS TIDAL VOLUME 500 cc; ARTERIAL BLOOD GAS FIO2 45 %; ARTERIAL BLOOD GAS PCO2 54 mmHg (35-45); ARTERIAL BLOOD GAS PO2 89 mmHg (75-100); ARTERIAL BLOOD GAS VENT MODE AVAPS; ARTERIAL BLOOD GAS VENT RATE 18 /MIN; CARBOXYHEMOGLOBIN 1.4 % THgb (0.0-6.9); HCO3- 33.4 (22-28); HGB O2 SAT 96.4 g/dF (94-100); Methhemoglobin 0.7 % (1.4-1.5)
[2021-08-10 05:38] LABS: Hematocrit 35.9 % (35-47); Hemoglobin 11.5 gm/dl (12.0-16.0); Mean Cell Volume 83.9 fl (78-100); Mean Corpuscular Hemoglobin 26.9 pg (26-32); Mean Platelet Volume 9.6 fl (7.5-11.0); Platelet Count 195 K/mm3 (150-450); Red Blood Count 4.28 M/mm3 (4.1-5.4); Red Cell Distribution Width 16.1 % (11.5-14.0)
[2021-08-10 05:53] LABS: ANION GAP 10.2 MEQ/L (5-15); BLOOD UREA NITROGEN 18 mg/dL (7-17); CHLORIDE 96 mmol/L (98-107); Calcium 8.4 mg/dL (8.4-10.2); Carbon Dioxide 33 mmol/L (22-30); Creatinine 1 0.95 mg/dL (0.52-1.04); EST GLOMERULAR FILTRATION RATE > 60.0 ML/MIN; Glucose 177 mg/dL (74-106); Potassium 3.2 mmol/L (3.5-5.1); SODIUM 135 mmol/L (137-145)
[2021-08-10 05:59] LABS: White Blood Count 34.5 K/mm3 (4.0-10.5)
[2021-08-10 06:25] LABS: Slide Review YES
[2021-08-10] MEDS ORDERED: PHARMACY DOSING REQUEST MC ONE (06:31)
[2021-08-10] MEDS ORDERED: PHARMACY DOSING REQUIRED: VANCOMYCIN IV STA (06:31)
[2021-08-10] MEDS ORDERED: Ativan 2 MG/1 ML VIAL IV PRN (06:51)
[2021-08-10] MEDS ORDERED: VANCOMYCIN 1 GRAM/200 ML BAG 1 GM/200 ML PIGGYBACK IV ONE (07:00)
[2021-08-10] MEDS: PULMICORT 0.5 MG/2 ML RESPULES IH SCH ×2 (07:03→20:16)
[2021-08-10] MEDS: Zosyn 2.25 GM 2.25 GM in Sodium Chloride 100ML MINI-BAG PLUS 100 ML IV SCH ×3 (08:09→17:13)
--- NOTE | 2021-08-10 08:40 | XRAY ---
Indication: Cough and short of breath. History "blood clots in chest." Multiple contiguous axial images obtained through the chest using 100 cc Isovue 370 contrast and PE protocol. Comparison: None There is satisfactory opacification of the pulmonary arteries to include the lobar and segmental branches. However mild respiration artifact limits evaluation of the more distal lobar and segmental branches. No obvious central pulmonary embolus. Heart is enlarged with left-sided dual-lead pacemaker. Aorta demonstrates minimal arteriosclerotic calcifications without aneurysm/dissection. No pathologic mediastinal/hilar lymphadenopathy. Small hiatal hernia. Lungs demonstrates 5.6 x 4.8 x 5.2 cm noncalcified right upper lobe masslike opacity with irregular margins. Mild bibasilar subsegmental atelectasis/scarring and small right upper lobe calcified granuloma. No effusion. Bony thorax intact with mild osteopenia and mild/moderate degenerative changes throughout the spine. Limited upper abdomen demonstrates fatty liver and tiny hepatic/splenic calcified granulomas. Indeterminant 1.8 x 2.5 cm noncalcified left adrenal gland mass. Impression: 1. Respiration artifact limits evaluation for pulmonary embolus. No obvious central pulmonary embolus. 2. Large right upper lobe masslike opacity. PET/CT may yield further information. 3. Indeterminant left adrenal gland mass. Metastasis not completely excluded given right upper lobe masslike opacity. 4. Incidental fatty liver, chronic bony findings, and old granulomatous disease. Comment: Preliminary interpretation made by [facility]. No critical discrepancy.
--- NOTE | 2021-08-10 08:42 | XRAY ---
Indication: Short of breath and weakness. Comparison: April 03, 2020. Portable chest demonstrates new 4.5 cm right upper lobe masslike opacity. Stable small right upper lobe calcified granuloma, cardiomegaly, and left dual-lead pacemaker. Bony thorax intact again with osteopenia and degenerative changes.
--- NOTE | 2021-08-10 08:43 | XRAY ---
Indication: Short of breath and weakness. Comparison: One day earlier. Portable chest unchanged again demonstrating 4.5 cm right upper lobe masslike opacity, small right upper lobe calcified granuloma, cardiomegaly, and left dual-lead pacemaker. No new cardiopulmonary abnormalities..
[2021-08-10] MEDS ORDERED: Levofloxacin 500MG/100ML D5W 500 MG/100 ML BAG IV SCH (10:00)
[2021-08-10] MEDS ORDERED: ENOXAPARIN SODIUM SQ SCH (10:00)
[2021-08-10] MEDS: SUBLIMAZE 100 MCG/2 ML IV PRN ×4 (10:14→21:38)
[2021-08-10] MEDS: Sodium Chloride 0.9% W/ 20 mEq KCl/LITER 1,000 ML IV SCH ×2 (10:14→23:17)
[2021-08-10] MEDS ORDERED: NON-FORMULARY ITEM (Hydralazine Hcl [Hydralazine Hcl] 50 MG) PO SCH (10:15)
[2021-08-10] MEDS: Klor Con 10 MEQ PO SCH ×2 (10:26→22:12)
[2021-08-10] MEDS: Novolin N SQ SCH (10:26)
[2021-08-10] MEDS: BUSPAR 5 MG PO SCH (10:26)
[2021-08-10] MEDS: ECOTRIN 81 MG PO SCH (10:26)
[2021-08-10] MEDS: Toprol Xl 50 MG PO SCH (10:27)
[2021-08-10] MEDS ORDERED: DUONEB 0.5-3 MG/3 ml Neb IH ONE (10:47)
[2021-08-10] MEDS ORDERED: PULMICORT 0.5 MG/2 ML RESPULES IH SCH (11:00)
[2021-08-10] MEDS ORDERED: SODIUM CHLORIDE 0.9% IV ONE (11:00)
[2021-08-10] MEDS ORDERED: VANCOCIN IV ONE (11:00)
[2021-08-10] MEDS: Apresoline 25 MG TABLET PO SCH ×2 (11:15→16:42)
[2021-08-10] MEDS: Lidoderm Patch 5% TOP SCH (11:15)
[2021-08-10] MEDS: hydroDIURIL 25 MG PO SCH (11:15)
[2021-08-10] MEDS: solu-MEDROL IV SCH (17:56)
[2021-08-10] MEDS: Desyrel 150 MG PO SCH (22:12)
[2021-08-11] MEDS: Zosyn 2.25 GM 2.25 GM in Sodium Chloride 100ML MINI-BAG PLUS 100 ML IV SCH ×5 (00:07→23:36)
[2021-08-11] MEDS: Apresoline 25 MG TABLET PO SCH ×5 (00:20→23:34)
[2021-08-11] MEDS: solu-MEDROL IV SCH ×3 (01:59→18:49)
[2021-08-11 05:41] LABS: Hematocrit 36.7 % (35-47); Hemoglobin 11.6 gm/dl (12.0-16.0); Mean Cell Volume 85.3 fl (78-100); Mean Corpuscular Hgb Concent. 31.6 g/dl (32-36); Mean Platelet Volume 9.8 fl (7.5-11.0); Platelet Count 191 K/mm3 (150-450); Red Cell Distribution Width 16.5 % (11.5-14.0)
[2021-08-11 05:56] LABS: ANION GAP 8.3 MEQ/L (5-15); BLOOD UREA NITROGEN 24 mg/dL (7-17); CHLORIDE 100 mmol/L (98-107); Calcium 8.5 mg/dL (8.4-10.2); Carbon Dioxide 33 mmol/L (22-30); Creatinine 1 0.89 mg/dL (0.52-1.04); EST GLOMERULAR FILTRATION RATE > 60.0 ML/MIN; Glucose 177 mg/dL (74-106); Potassium 3.8 mmol/L (3.5-5.1); SODIUM 138 mmol/L (137-145)
[2021-08-11 06:27] LABS: A-aADO2 177; ABG HEMOGLOBIN 11.4; ABG POTASSIUM 3.8 (3.5-5.1); ARTERIAL BLD GAS TIDAL VOLUME 500 cc; ARTERIAL BLOOD GAS BASE EXCESS 3.6 (-2.0-2.0); ARTERIAL BLOOD GAS FIO2 45 %; ARTERIAL BLOOD GAS PO2 68 mmHg (75-100); ARTERIAL BLOOD GAS pH 7.32 (7.35-7.45); CARBOXYHEMOGLOBIN 1.4 % THgb (0.0-6.9); HCO3- 31.4 (22-28); HGB O2 SAT 94.4 g/dF (94-100); Methhemoglobin 0.3 % (1.4-1.5)
[2021-08-11 06:28] LABS: ABG SITE RIGHT RADIAL; ALLEN TEST OK? YES; ARTERIAL BLOOD GAS PCO2 61 mmHg (35-45)
[2021-08-11] MEDS: DUONEB 0.5-3 MG/3 ml Neb IH PRN (07:19)
[2021-08-11] MEDS: PULMICORT 0.5 MG/2 ML RESPULES IH SCH ×2 (07:19→19:34)
[2021-08-11] MEDS: hydroDIURIL 25 MG PO SCH (09:49)
[2021-08-11] MEDS: Klor Con 10 MEQ PO SCH ×2 (09:49→22:36)
[2021-08-11] MEDS: Protonix 20MG Tablet PO SCH (09:49)
[2021-08-11] MEDS: ECOTRIN 81 MG PO SCH (09:50)
[2021-08-11] MEDS: BUSPAR 5 MG PO SCH (09:50)
[2021-08-11] MEDS: Toprol Xl 50 MG PO SCH (09:50)
[2021-08-11] MEDS ORDERED: LIDOCAINE TP SCH (10:00)
[2021-08-11] MEDS ORDERED: NON-FORMULARY ITEM (Chlorthalidone [Chlorthalidone] 25 MG) PO SCH (10:00)
[2021-08-11] MEDS: Sodium Chloride 0.9% W/ 20 mEq KCl/LITER 1,000 ML IV SCH (10:07)
[2021-08-11] MEDS: Lidoderm Patch 5% TOP SCH (10:14)
[2021-08-11] MEDS: VANCOMYCIN 1.5 GRAM/300 ML BAG 1.5 GM/300 ML PIGGYBACK IV SCH (10:15)
--- NOTE | 2021-08-11 11:41 | CONS ---
CONSULT DATE: 08/10/2021 HISTORY: She is a 70-year-old female with medical history of hypertension, diabetes, stroke, congestive heart failure and chronic obstructive pulmonary disease that presented to the emergency room complaining of lung pain and generalized body pain including shortness of breath and not feeling well. She was unable to give an exact location of her pain. The patient was found per CT chest to have no obvious pulmonary embolism but a large right upper lobe mass was found that measured approximately 5.6 x 4.8 x 5.2 cm in the right upper lobe. PET scan was recommended for further information. The patient was admitted for diagnosis of pneumonia. She was placed on BiPAP and transferred to the floor for further care. PHYSICAL EXAMINATION: GENERAL APPEARANCE: Mild respiratory distress, awake, alert, oriented. BiPAP in place. HEENT: PERRLA. ENT within normal limits. NECK: No JVD present. CVS: Regular rate and rhythm. Normal heart sounds. Peripheral pulses palpable. RESPIRATORY: Breath sounds diminished, crackles present, rhonchi. BiPAP in place. No respiratory distress. GI: Soft, bowel sounds within normal limits. NEUROLOGIC: Alert, oriented x3. SKIN: Deferred. LABORATORY DATA AND TESTS: All labs reviewed including CT scan and chest x-ray. ASSESSMENT: Dr. Brenden Elizondo reviewed personally the CT and recommended a CT guided biopsy per interventional radiology. All blood thinners placed on hold. Will repeat chest x-ray after 72 hours after completion of IV antibiotics. If improvement does not show will consider PET scan. Continue Levaquin and initiate Solu-Medrol 40 mg IV every [address] guided biopsy per interventional radiology at their most appropriate time for completion. As dictated by SULAIMAN Sheets.
[2021-08-11] MEDS: Novolin N SQ SCH (12:58)
--- NOTE | 2021-08-11 13:12 | XRAY ---
Indication: Status post CT-guided right lung biopsy. Comparison: One day earlier. Portable chest less inflated with grossly stable right upper lobe masslike opacity and no obvious pneumothorax. Stable cardiomegaly and left dual-lead pacemaker. No new/acute cardiopulmonary abnormalities.
--- NOTE | 2021-08-11 13:34 | XRAY ---
Indication: Right upper lobe masslike opacity. Informed consent obtained. The patient was placed on the CT table prone. CT images were obtained through the right upper lobe mass for localization. The skin was then prepped and draped in sterile fashion. 1% Lidocaine plain was used for local anesthesia. Tiny skin incision made. A 17 gauge outer guiding needle was then percutaneously inserted into the periphery of the right lung mass in question. Then a 18-gauge Temno biopsy needle was inserted into the guiding needle. Multiple core biopsies were then obtained. The specimen was then collected and taken to pathology for analysis. At the end, all needles removed. Hemostasis achieved using digital pressure over the puncture site. Small Band-Aid applied. Repeat postbiopsy CT imaging negative for pneumothorax. Patient returned to her room in good condition. Impression: Technically successful CT-guided percutaneous biopsy of right upper lobe masslike opacity. No pneumothorax. Approximately 2 cc blood loss.
[2021-08-11] MEDS: TYLENOL 325 MG PO PRN ×2 (14:00→23:35)
[2021-08-11 14:23] LABS: A-aADO2 155; ABG HEMOGLOBIN 12.1; ABG POTASSIUM 3.6 (3.5-5.1); ABG SITE LEFT BRACHIAL; ARTERIAL BLD GAS O2 SATURATION 96.4 % (95-100); ARTERIAL BLOOD GAS FIO2 40 %; ARTERIAL BLOOD GAS PCO2 48 mmHg (35-45); ARTERIAL BLOOD GAS PO2 70 mmHg (75-100); CARBOXYHEMOGLOBIN 1.2 % THgb (0.0-6.9); HCO3- 29.7 (22-28); HGB O2 SAT 94.5 g/dF (94-100); Methhemoglobin 0.8 % (1.4-1.5)
--- NOTE | 2021-08-11 18:27 | PCM.HP ---
History of Present Illness - Chief Complaint Chief Complaint: RUL PNEUMONIA, LEUKOCYTOSIS,Right upper lobe mass Date: 08/10/21 History of Present Illness: is a 70 year old female. Presented to ER with complaints of lower back pain and "lung pain" with sob. On further evaluation patient found to have a mass/infiltrate in the right upper lobe. - Review of Systems Constitutional: No Fever, No Chills Eyes: No Symptoms Ears, Nose, & Throat: No Symptoms Respiratory: Short Of Breath, No Cough Cardiac: No Chest Pain (Pt. notes general "lung" pain), No Edema, No Syncope Abdominal/Gastrointestinal: No Abdominal Pain, No Nausea, No Vomiting, No Diarrhea Genitourinary Symptoms: No Dysuria Musculoskeletal: Back Pain, No Neck Pain Skin: No Rash Neurological: No Dizziness, No Focal Weakness, No Sensory Changes Psychological: No Symptoms Endocrine: No Symptoms Hematologic/Lymphatic: No Symptoms Immunological/Allergic: No Symptoms Medications & Allergies Home Medications: Home Medication List Hydralazine HCl 50 mg PO Q6H 04/03/20 [History Confirmed 08/09/21] Potassium Chloride 10 Meq Tab* [Klor Con 10 MEQ] 10 meq PO BID 04/03/20 [History Confirmed 08/09/21] Albuterol/Ipratropium 3ml Neb* [DUONEB 0.5-3 MG/3 ml Neb] 1 mg IH Q6H PRN 08/09/21 [History Confirmed 08/09/21] Aspirin EC 81 mg [Ecotrin 81 mg] 81 mg PO DAILY 08/09/21 [History Confirmed 08/09/21] Budesonide 0.5 mg/2 ml [Pulmicort 0.5 mg/2 ml Respules] 1 mg IH DAILY 08/09/21 [History Confirmed 08/09/21] Buspirone HCl 5 mg [Buspar 5 mg] 5 mg PO DAILY 08/09/21 [History Confirmed 08/09/21] Chlorthalidone 25 mg PO DAILY 08/09/21 [History Confirmed 08/09/21] Insulin NPH Human Recom [Novolin N] 44 units SQ DAILY 08/09/21 [History Confirmed 08/09/21] Lidocaine 1 each TP DAILY 08/09/21 [History Confirmed 08/09/21] Metoprolol Succinate 50 mg [Toprol Xl 50 MG] 50 mg PO DAILY 08/09/21 [History Confirmed 08/09/21] Pantoprazole 20 mg [Protonix 20MG Tablet] 20 mg PO DAILY 08/09/21 [History Confirmed 08/09/21] Trazodone HCl 150 mg PO HS 08/09/21 [History Confirmed 08/09/21] Allergies/Adverse Reactions: Allergies Allergy/AdvReac Type Severity Reaction Status Date / Time ceftriaxone [From Rocephin] Allergy Severe Verified 08/09/21 14:27 codeine Allergy Verified 08/09/21 14:27 diphenhydramine HCl Allergy Verified 08/09/21 14:27 [From Benadryl] hydromorphone HCl Allergy Verified 08/09/21 14:27 [From Dilaudid] morphine AdvReac Mild Verified 08/09/21 14:27 - Past Medical History Past Medical History: Yes Neurological History: Stroke, Other Cardiac History: Congestive Heart Failure, Hypertension Respiratory History: COPD Endocrine Medical History: Diabetes Type II Musculoskelatal History: Arthritis Pyscho-Social History: Depression Comment: APHASIA - Female History Hx Last Menstrual Period: post Are you now?: No - Past Surgical History Past Surgical History: Yes Neuro Surgical History: Other GI Surgical History: Appendectomy, Cholecystectomy Female Surgical History: Hysterectomy - Social History Smoking Status: Never smoker Exposure to second hand smoke: No Alcohol: None Drug Use: none - Physical Exam Vital Signs: Vital Signs - 24 hr Temp Pulse Resp BP BP Pulse Ox 08/11/21 16:00 97.8 F 63 24 149/66 92 L 08/11/21 12:00 97.3 F 80 18 152/67 94 L 08/11/21 08:00 96.6 F 60 17 151/67 92 L 08/11/21 07:23 64 18 94 L 08/11/21 04:00 97.5 F 86 28 H 151/66 94 L 08/10/21 23:45 96.9 F 88 26 H 132/58 95 08/10/21 21:43 88 30 H 124/56 08/10/21 20:17 73 24 91 L 08/10/21 19:10 98.0 F 72 28 H 124/56 95 General Appearance: no apparent distress, alert Neurologic Exam: cooperative Eye Exam: eyes nml inspection Ears, Nose, Throat Exam: normal ENT inspection, pharynx normal, moist mucous membranes Neck Exam: normal inspection Respiratory Exam: diminished breath sounds Cardiovascular Exam: regular rate/rhythm, No murmur Gastrointestinal/Abdomen Exam: soft, No normal bowel sounds, No tenderness Pelvic Exam: not done Rectal Exam: deferred Extremity Exam: normal inspection Skin Exam: normal color, warm, dry, No rash, No petechiae Results - Labs Lab/Micro Results: Lab Results-Last 24 Hours 08/10/21 08/10/21 08/11/21 Range/Units 04:27 20:57 04:44 WBC 34.5 H* 24.0 H (4.0-10.5) K/mm3 RBC 4.28 4.30 (4.1-5.4) M/mm3 Hgb 11.5 L 11.6 L (12.0-16.0) gm/dl Hct 35.9 36.7 (35-47) % MCV 83.9 85.3 (78-100) fl MCH 26.9 27.0 (26-32) pg MCHC 32.0 31.6 L (32-36) g/dl RDW 16.1 H 16.5 H (11.5-14.0) % Plt Count 195 191 (150-450) K/mm3 MPV 9.6 9.8 (7.5-11.0) fl Smear Path Review APTT (25.1-36.5) SECONDS Puncture Site pCO2 (35-45) mmHg pO2 (75-100) mmHg Base Excess (-2.0-2.0) O2 Saturation (94-100) g/dF ABG pH (7.35-7.45) ABG HCO3 (22-28) ABG O2 Sat (Measured) (95-100) % Nawaf Test A-a Gradient a/A Ratio Hemoglobin Carboxyhemoglobin (0.0-6.9) % THgb Methemoglobin (1.4-1.5) % Temperature C POC O2 Flow Rate % Tidal Volume cc Sodium (137-145) mmol/L Potassium (3.5-5.1) mmol/L Chloride (98-107) mmol/L Carbon Dioxide (22-30) mmol/L Anion Gap (5-15) MEQ/L BUN (7-17) mg/dL Creatinine (0.52-1.04) mg/dL Estimated GFR ML/MIN Glucose (74-106) mg/dL POC Glucometer 135 H (74 to 106) mg/dL Calcium (8.4-10.2) mg/dL Slides for Path Review YES 08/11/21 08/11/21 08/11/21 Range/Units 04:44 04:44 06:25 WBC (4.0-10.5) K/mm3 RBC (4.1-5.4) M/mm3 Hgb (12.0-16.0) gm/dl Hct (35-47) % MCV (78-100) fl MCH (26-32) pg MCHC (32-36) g/dl RDW (11.5-14.0) % Plt Count (150-450) K/mm3 MPV (7.5-11.0) fl Smear Path Review APTT 23.5 L (25.1-36.5) SECONDS Puncture Site RIGHT RADIAL pCO2 61 H* (35-45) mmHg pO2 68 L (75-100) mmHg Base Excess 3.6 H (-2.0-2.0) O2 Saturation 94.4 (94-100) g/dF ABG pH 7.32 L (7.35-7.45) ABG HCO3 31.4 H* (22-28) ABG O2 Sat (Measured) 96.0 (95-100) % Nawaf Test YES A-a Gradient 177 a/A Ratio 0.28 Hemoglobin 11.4 Carboxyhemoglobin 1.4 (0.0-6.9) % THgb Methemoglobin 0.3 L (1.4-1.5) % Temperature 37.0 C POC O2 Flow Rate 45 % Tidal Volume 500 cc Sodium 138 (137-145) mmol/L Potassium 3.8 3.8 (3.5-5.1) mmol/L Chloride 100 (98-107) mmol/L Carbon Dioxide 33 H (22-30) mmol/L Anion Gap 8.3 (5-15) MEQ/L BUN 24 H (7-17) mg/dL Creatinine 0.89 (0.52-1.04) mg/dL Estimated GFR > 60.0 ML/MIN Glucose 177 H (74-106) mg/dL POC Glucometer (74 to 106) mg/dL Calcium 8.5 (8.4-10.2) mg/dL Slides for Path Review 08/11/21 08/11/21 08/11/21 Range/Units 07:18 11:32 14:15 WBC (4.0-10.5) K/mm3 RBC (4.1-5.4) M/mm3 Hgb (12.0-16.0) gm/dl Hct (35-47) % MCV (78-100) fl MCH (26-32) pg MCHC (32-36) g/dl RDW (11.5-14.0) % Plt Count (150-450) K/mm3 MPV (7.5-11.0) fl Smear Path Review APTT (25.1-36.5) SECONDS Puncture Site LEFT BRACHIAL pCO2 48 H (35-45) mmHg pO2 70 L (75-100) mmHg Base Excess 4.0 H (-2.0-2.0) O2 Saturation 94.5 (94-100) g/dF ABG pH 7.40 (7.35-7.45) ABG HCO3 29.7 H* (22-28) ABG O2 Sat (Measured) 96.4 (95-100) % Nawaf Test NOT APPLICABLE A-a Gradient 155 a/A Ratio 0.31 Hemoglobin 12.1 Carboxyhemoglobin 1.2 (0.0-6.9) % THgb Methemoglobin 0.8 L (1.4-1.5) % Temperature 37.0 C POC O2 Flow Rate 40 % Tidal Volume cc Sodium (137-145) mmol/L Potassium 3.6 (3.5-5.1) mmol/L Chloride (98-107) mmol/L Carbon Dioxide (22-30) mmol/L Anion Gap (5-15) MEQ/L BUN (7-17) mg/dL Creatinine (0.52-1.04) mg/dL Estimated GFR ML/MIN Glucose (74-106) mg/dL POC Glucometer 189 H 173 H (74 to 106) mg/dL Calcium (8.4-10.2) mg/dL Slides for Path Review 08/11/21 Range/Units 17:21 WBC (4.0-10.5) K/mm3 RBC (4.1-5.4) M/mm3 Hgb (12.0-16.0) gm/dl Hct (35-47) % MCV (78-100) fl MCH (26-32) pg MCHC (32-36) g/dl RDW (11.5-14.0) % Plt Count (150-450) K/mm3 MPV (7.5-11.0) fl Smear Path Review APTT (25.1-36.5) SECONDS Puncture Site pCO2 (35-45) mmHg pO2 (75-100) mmHg Base Excess (-2.0-2.0) O2 Saturation (94-100) g/dF ABG pH (7.35-7.45) ABG HCO3 (22-28) ABG O2 Sat (Measured) (95-100) % Nawaf Test A-a Gradient a/A Ratio Hemoglobin Carboxyhemoglobin (0.0-6.9) % THgb Methemoglobin (1.4-1.5) % Temperature C POC O2 Flow Rate % Tidal Volume cc Sodium (137-145) mmol/L Potassium (3.5-5.1) mmol/L Chloride (98-107) mmol/L Carbon Dioxide (22-30) mmol/L Anion Gap (5-15) MEQ/L BUN (7-17) mg/dL Creatinine (0.52-1.04) mg/dL Estimated GFR ML/MIN Glucose (74-106) mg/dL POC Glucometer 254 H (74 to 106) mg/dL Calcium (8.4-10.2) mg/dL Slides for Path Review Microbiology 08/10/21 13:50 Urine Culture - Preliminary Urine, Indwelling Catheter NO GROWTH TO DATE Accuchecks Date 08/11/21 Date 08/11/21 Date 08/11/21 Date 08/10/21 - Radiology Impressions Radiology Exams & Impressions: Radiology Procedures Category Date Time Status BIO LUNG [CT] Routine Exams 08/11/21 11:47 Completed CHEST 2 VIEWS (PA AND LAT) DAILY Exams 08/10/21 00:00 Completed CHEST 2 VIEWS (PA AND LAT) Routine Exams 08/11/21 09:00 Completed CHEST WITH CONTRAST [CT] Stat Exams 08/09/21 18:56 Completed Assessment/Plan (1) Lung mass Current Visit: Yes Status: Acute Assessment & Plan: consult to pulmonology, possible needle biopsy if no clearing with iv abx. Code(s): R91.8 - OTHER NONSPECIFIC ABNORMAL FINDING OF LUNG FIELD (2) Pneumonia Current Visit: Yes Status: Acute Qualifiers: Pneumonia type: due to group B Streptococcus Laterality: right Lung location: upper lobe of lung Qualified Code(s): J15.3 - Pneumonia due to streptococcus, group B Assessment & Plan: Pt. will be started on IV antibiotics Code(s): J18.9 - PNEUMONIA, UNSPECIFIED ORGANISM
[2021-08-11] MEDS: HUMULIN R SQ PRN ×2 (18:50→22:35)
[2021-08-11] MEDS: Desyrel 150 MG PO SCH (22:36)
[2021-08-12] MEDS: Sodium Chloride 0.9% W/ 20 mEq KCl/LITER 1,000 ML IV SCH ×2 (02:25→17:22)
[2021-08-12] MEDS ORDERED: Sterile H2O 10 ml IJ ONE ×2 (02:41→09:50)
[2021-08-12] MEDS: solu-MEDROL IV SCH ×3 (02:43→17:20)
[2021-08-12] MEDS: Apresoline 25 MG TABLET PO SCH ×4 (05:41→23:54)
[2021-08-12] MEDS: Zosyn 2.25 GM 2.25 GM in Sodium Chloride 100ML MINI-BAG PLUS 100 ML IV SCH ×4 (05:42→23:54)
[2021-08-12 05:49] LABS: A-aADO2 114; ABG POTASSIUM 3.6 (3.5-5.1); ABG SITE RIGHT RADIAL; ALLEN TEST OK? YES; ARTERIAL BLD GAS O2 SATURATION 97.7 % (95-100); ARTERIAL BLOOD GAS BASE EXCESS 4.4 (-2.0-2.0); ARTERIAL BLOOD GAS FIO2 36 %; ARTERIAL BLOOD GAS PCO2 52 mmHg (35-45); ARTERIAL BLOOD GAS PO2 78 mmHg (75-100); ARTERIAL BLOOD GAS pH 7.38 (7.35-7.45); CARBOXYHEMOGLOBIN 1.1 % THgb (0.0-6.9); HCO3- 30.8 (22-28); HGB O2 SAT 95.8 g/dF (94-100); Methhemoglobin 0.8 % (1.4-1.5)
[2021-08-12 05:58] LABS: Hemoglobin 10.8 gm/dl (12.0-16.0); Mean Cell Volume 83.3 fl (78-100); Mean Corpuscular Hemoglobin 26.5 pg (26-32); Mean Corpuscular Hgb Concent. 31.8 g/dl (32-36); Platelet Count 204 K/mm3 (150-450); Red Blood Count 4.08 M/mm3 (4.1-5.4); White Blood Count 16.7 K/mm3 (4.0-10.5)
[2021-08-12 06:24] LABS: ANION GAP 8.8 MEQ/L (5-15); BLOOD UREA NITROGEN 26 mg/dL (7-17); CHLORIDE 101 mmol/L (98-107); Calcium 8.4 mg/dL (8.4-10.2); Carbon Dioxide 30 mmol/L (22-30); Creatinine 1 0.82 mg/dL (0.52-1.04); EST GLOMERULAR FILTRATION RATE > 60.0 ML/MIN; Glucose 189 mg/dL (74-106); Potassium 3.6 mmol/L (3.5-5.1); SODIUM 136 mmol/L (137-145)
[2021-08-12] MEDS: PULMICORT 0.5 MG/2 ML RESPULES IH SCH ×2 (07:17→19:58)
[2021-08-12] MEDS: Novolin N SQ SCH (09:52)
[2021-08-12] MEDS: VANCOMYCIN 1.5 GRAM/300 ML BAG 1.5 GM/300 ML PIGGYBACK IV SCH (09:52)
[2021-08-12] MEDS: Toprol Xl 50 MG PO SCH (09:52)
[2021-08-12] MEDS: Protonix 20MG Tablet PO SCH (09:52)
[2021-08-12] MEDS: hydroDIURIL 25 MG PO SCH (09:52)
[2021-08-12] MEDS: Klor Con 10 MEQ PO SCH ×2 (09:52→21:06)
[2021-08-12] MEDS: BUSPAR 5 MG PO SCH (09:53)
[2021-08-12] MEDS: Lidoderm Patch 5% TOP SCH (09:53)
[2021-08-12] MEDS: Sterile H2O 10 ml IJ SCH ×2 (10:06→17:20)
[2021-08-12] MEDS: TYLENOL 325 MG PO PRN ×3 (10:17→23:53)
[2021-08-12] MEDS: ECOTRIN 81 MG PO SCH (11:01)
[2021-08-12] MEDS: HUMULIN R SQ PRN ×3 (12:12→21:08)
[2021-08-12] MEDS: Desyrel 150 MG PO SCH (21:06)
[2021-08-13] MEDS ORDERED: Catapres 0.1 MG PO ONE ×3 (01:00→21:30)
[2021-08-13] MEDS ORDERED: Ativan 2 MG/1 ML VIAL IV ONE (01:00)
[2021-08-13] MEDS: solu-MEDROL IV SCH ×3 (02:30→17:58)
[2021-08-13] MEDS: Sterile H2O 10 ml IJ SCH ×3 (02:30→17:58)
[2021-08-13 05:40] LABS: Hematocrit 33.4 % (35-47); Hemoglobin 10.6 gm/dl (12.0-16.0); Mean Cell Volume 83.5 fl (78-100); Mean Corpuscular Hemoglobin 26.5 pg (26-32); Mean Corpuscular Hgb Concent. 31.7 g/dl (32-36); Mean Platelet Volume 10.1 fl (7.5-11.0); Platelet Count 190 K/mm3 (150-450); White Blood Count 11.7 K/mm3 (4.0-10.5)
[2021-08-13 06:07] LABS: ANION GAP 9.4 MEQ/L (5-15); BLOOD UREA NITROGEN 25 mg/dL (7-17); CHLORIDE 101 mmol/L (98-107); Calcium 8.2 mg/dL (8.4-10.2); Carbon Dioxide 32 mmol/L (22-30); Creatinine 1 0.85 mg/dL (0.52-1.04); EST GLOMERULAR FILTRATION RATE > 60.0 ML/MIN; Glucose 152 mg/dL (74-106); Potassium 3.8 mmol/L (3.5-5.1); SODIUM 139 mmol/L (137-145)
[2021-08-13] MEDS: Apresoline 25 MG TABLET PO SCH ×4 (06:27→23:30)
[2021-08-13] MEDS: Zosyn 2.25 GM 2.25 GM in Sodium Chloride 100ML MINI-BAG PLUS 100 ML IV SCH ×3 (06:29→18:46)
[2021-08-13] MEDS: DUONEB 0.5-3 MG/3 ml Neb IH PRN ×2 (07:06→18:43)
[2021-08-13] MEDS: PULMICORT 0.5 MG/2 ML RESPULES IH SCH ×2 (07:07→18:43)
--- NOTE | 2021-08-13 07:53 | PROG NOTE ---
DATE: 08/12/2021 HISTORY: Tracey Richter is a 70 year-old woman who has been admitted under the care of Dr. Hayward at [facility]. The patient has been experiencing shortness of breath and back pain. She had a CT chest performed that showed a mass-like infiltrate involving right upper lobe posterior area. The patient was evaluated by ALM Sheets in consultation with me. CT guided biopsy was recommended which was carried out. At the time of my evaluation today, the patient is awake and comfortable. She continues to report back pain constantly. She reportedly has chronic lung problems and is on home oxygen therapy. She also uses inhaler but is unsure of the name. PHYSICAL EXAMINATION: Vital signs noted. HEENT: Normocephalic. Oral exam unremarkable. CVS: First and second heart sounds are normal, regular, rhythmic. RESPIRATORY: Shows diminished breath sounds but fairly clear. ABDOMEN: Soft. EXTREMITIES: No edema is noted. LABORATORY DATA AND TESTS: Pathology report from CT guided had shown inflammatory cells with alveolar neutrophilic inflammation and hemorrhage without obvious malignancy. ASSESSMENT: This is a 70 year old woman admitted with: 1) Right upper lobe mass-like infiltrate appears inflammatory/infectious in etiology with negative biopsies on CT guided approach. 2) Underlying chronic obstructive pulmonary disease. 3) Hypoxemia on home oxygen therapy. 4) Former smoker, quit about 20 years ago. 5) Chronic back pain. RECOMMENDATIONS: I have discussed the pathology report with the patient and she is thankful to hear that malignancy does not appear on pathology slides. I have advised the patient to be on oral antibiotics for at least ten days followed by a limited CT without contrast to assess resolution of right upper lobe infiltrate. She requests antibiotics that are "less expensive" due to financial constraints. I recommend that the patient may be discharged home on ciprofloxacin 500 mg p.o. twice daily for ten days followed by a CT chest without contrast and follow up with me in the office. She has been instructed to continue her bronchodilator supplemental oxygen as well as other therapy. I will be happy to reassess her upon completion of antibiotics and once repeat CT is done. If any questions remain unanswered, please feel free to contact me.
--- NOTE | 2021-08-13 08:46 | XRAY ---
Indication: Bronchitis. Comparison: August 11, 2021. Portable chest again demonstrates right upper lobe masslike opacity, slightly smaller and less opaque. Stable tiny right upper lobe calcified granuloma. Heart remains enlarged again with left pacemaker. No new cardiopulmonary abnormalities.
[2021-08-13] MEDS ORDERED: TROUGH DRUG LEVELS IJ ONE (09:30)
[2021-08-13] MEDS: ECOTRIN 81 MG PO SCH (09:51)
[2021-08-13] MEDS: hydroDIURIL 25 MG PO SCH (09:51)
[2021-08-13] MEDS: Klor Con 10 MEQ PO SCH ×2 (09:51→21:25)
[2021-08-13] MEDS: Protonix 20MG Tablet PO SCH (09:51)
[2021-08-13] MEDS: Toprol Xl 50 MG PO SCH (09:52)
[2021-08-13] MEDS: Novolin N SQ SCH (09:52)
[2021-08-13] MEDS: BUSPAR 5 MG PO SCH (09:52)
[2021-08-13] MEDS: Lidoderm Patch 5% TOP SCH (09:53)
[2021-08-13] MEDS: Sodium Chloride 0.9% W/ 20 mEq KCl/LITER 1,000 ML IV SCH (10:00)
[2021-08-13] MEDS: TYLENOL 325 MG PO PRN ×2 (10:30→17:35)
[2021-08-13] MEDS: HUMULIN R SQ PRN ×2 (11:52→17:07)
[2021-08-13] MEDS: VANCOMYCIN 1.5 GRAM/300 ML BAG 1.5 GM/300 ML PIGGYBACK IV SCH (15:26)
[2021-08-13] MEDS: VANCOMYCIN 1 GRAM/200 ML BAG 1 GM/200 ML PIGGYBACK IV SCH (17:21)
[2021-08-13] MEDS ORDERED: Catapres 0.1 MG PO SCH (21:15)
[2021-08-13] MEDS ORDERED: Catapres 0.1 MG ONE (21:23)
[2021-08-13] MEDS: Desyrel 150 MG PO SCH (21:25)
[2021-08-14] MEDS: Zosyn 2.25 GM 2.25 GM in Sodium Chloride 100ML MINI-BAG PLUS 100 ML IV SCH ×5 (00:30→23:54)
[2021-08-14] MEDS: Sterile H2O 10 ml IJ SCH ×3 (02:00→18:57)
[2021-08-14] MEDS: solu-MEDROL IV SCH ×3 (02:00→18:57)
[2021-08-14] MEDS: Sodium Chloride 0.9% W/ 20 mEq KCl/LITER 1,000 ML IV SCH (03:29)
[2021-08-14] MEDS: Catapres 0.1 MG PO SCH ×6 (04:10→19:51)
[2021-08-14] MEDS: VANCOMYCIN 1 GRAM/200 ML BAG 1 GM/200 ML PIGGYBACK IV SCH ×2 (04:41→19:40)
[2021-08-14] MEDS: TYLENOL 325 MG PO PRN ×2 (04:44→14:05)
[2021-08-14] MEDS: Apresoline 25 MG TABLET PO SCH ×4 (05:37→23:54)
[2021-08-14 05:53] LABS: Hemoglobin 10.9 gm/dl (12.0-16.0); Mean Cell Volume 83.7 fl (78-100); Mean Corpuscular Hemoglobin 26.8 pg (26-32); Mean Corpuscular Hgb Concent. 32.1 g/dl (32-36); Mean Platelet Volume 9.8 fl (7.5-11.0); Platelet Count 193 K/mm3 (150-450); Red Blood Count 4.06 M/mm3 (4.1-5.4); Red Cell Distribution Width 15.9 % (11.5-14.0); White Blood Count 9.1 K/mm3 (4.0-10.5)
[2021-08-14 06:29] LABS: ANION GAP 11.1 MEQ/L (5-15); BLOOD UREA NITROGEN 22 mg/dL (7-17); CHLORIDE 99 mmol/L (98-107); Calcium 8.1 mg/dL (8.4-10.2); Carbon Dioxide 31 mmol/L (22-30); Creatinine 1 0.92 mg/dL (0.52-1.04); EST GLOMERULAR FILTRATION RATE > 60.0 ML/MIN; Glucose 255 mg/dL (74-106); Potassium 4.1 mmol/L (3.5-5.1); SODIUM 137 mmol/L (137-145)
[2021-08-14] MEDS: PULMICORT 0.5 MG/2 ML RESPULES IH SCH ×2 (06:45→19:12)
--- NOTE | 2021-08-14 08:30 | PCM.NOTE ---
Date and Time: 08/14/21827 Subjective Assessment: patient complains of feeling tired, no chest pain, she does not feel short of breath, minimal cough. she wants to go home Objective Exam General Appearance: no apparent distress, obese Respiratory Exam: rhonchi, No respiratory distress Cardiovascular Exam: regular rate/rhythm, normal heart sounds Gastrointestinal/Abdomen Exam: soft, No tenderness, No mass Extremity Exam: normal inspection, normal range of motion OBJECTIVE DATA Vital Signs: Vital Signs - 24 hr Temp Pulse Resp BP BP Pulse Ox 08/14/21 06:48 62 18 94 L 08/14/21 05:42 203/87 193/84 08/14/21 04:00 97.1 F 60 24 185/79 97 08/14/21 00:45 186/78 08/14/21 00:00 97.5 F 61 24 188/77 89 L 08/13/21 22:01 198/110 08/13/21 22:00 97.7 F 62 24 195/100 198/84 94 L 08/13/21 19:05 95 08/13/21 18:46 60 22 94 L 08/13/21 18:04 176/75 08/13/21 16:00 97.8 F 61 20 202/79 94 L 08/13/21 10:00 97.8 F 67 21 179/76 93 L Pain Assessment - Last Documented Pain Intensity [Back] 10 Pain Intensity 10 Pain Scale Used 0-10 Pain Scale Intake and Output: Intake & Output 08/11/21 08/12/21 08/13/21 08/14/21 11:59 11:59 11:59 11:59 Intake Total 2857 5007 1680 6288 Output Total 1000 1000 600 800 Balance 1857 4007 2872 5488 Weight 101.8 kg 103.6 kg 107.9 kg 112.5 kg Lab Results: Lab Results-Last 24 Hours 08/13/21 08/13/21 08/13/21 Range/Units 09:30 11:38 16:35 WBC (4.0-10.5) K/mm3 RBC (4.1-5.4) M/mm3 Hgb (12.0-16.0) gm/dl Hct (35-47) % MCV (78-100) fl MCH (26-32) pg MCHC (32-36) g/dl RDW (11.5-14.0) % Plt Count (150-450) K/mm3 MPV (7.5-11.0) fl Sodium (137-145) mmol/L Potassium (3.5-5.1) mmol/L Chloride (98-107) mmol/L Carbon Dioxide (22-30) mmol/L Anion Gap (5-15) MEQ/L BUN (7-17) mg/dL Creatinine (0.52-1.04) mg/dL Estimated GFR ML/MIN Glucose (74-106) mg/dL POC Glucometer 324 H 236 H (74 to 106) mg/dL Calcium (8.4-10.2) mg/dL Vancomycin Trough 9.08 L (10-20) ug/mL 08/14/21 08/14/21 08/14/21 Range/Units 04:31 04:31 06:36 WBC 9.1 (4.0-10.5) K/mm3 RBC 4.06 L (4.1-5.4) M/mm3 Hgb 10.9 L (12.0-16.0) gm/dl Hct 34.0 L (35-47) % MCV 83.7 (78-100) fl MCH 26.8 (26-32) pg MCHC 32.1 (32-36) g/dl RDW 15.9 H (11.5-14.0) % Plt Count 193 (150-450) K/mm3 MPV 9.8 (7.5-11.0) fl Sodium 137 (137-145) mmol/L Potassium 4.1 (3.5-5.1) mmol/L Chloride 99 (98-107) mmol/L Carbon Dioxide 31 H (22-30) mmol/L Anion Gap 11.1 (5-15) MEQ/L BUN 22 H (7-17) mg/dL Creatinine 0.92 (0.52-1.04) mg/dL Estimated GFR > 60.0 ML/MIN Glucose 255 H (74-106) mg/dL POC Glucometer 222 H (74 to 106) mg/dL Calcium 8.1 L (8.4-10.2) mg/dL Vancomycin Trough (10-20) ug/mL Radiology Exams: Radiology Procedures Category Date Time Status CHEST 1 VIEW (PORTABLE) Routine Exams 08/13/21 06:00 Completed CHEST 1 VIEW (PORTABLE) Routine Exams 08/14/21 06:00 Taken Multi-Disciplinary Progress Notes: Multi-Disciplinary Progress Notes 08/14/21 00:26 Respiratory Note by Shelley Ceja RT CALLED TO PT'S ROOM PER NURSE DUE TO LOW O2 SATS. WHEN I ENTERED THE ROOM PT'S O2 SAT WAS 87% ON ROOM AIR WHILE AT REST BECAUSE THE NASAL CANNULA WAS OUT OF HER NOSE. PT'S OXYGEN HAD BEEN TURNED UP PER NURSE TO 5LPM. ONCE CANNULA WAS PLACED BACK IN PT'S NOSE O2 SAT INCREASED TO 92%. NURSE AWARE. Initialized on 08/14/21 00:26 - END OF NOTE 08/13/21 15:20 Pharmacy Note by Erik Valles Vancomycin trough low at 9.08. Will change dose to 1gm iv q12h to increase level. Initialized on 08/13/21 15:20 - END OF NOTE 08/13/21 09:54 Case Management Note by Diann Rojo S/W PATIENT- SHE WALKED WITH NURSING LAST PM. SHE FEELS LIKE SHE WOULD LIKE TO RETURN HOME AT TIME OF DC. SHE FEELS SHE WILL BE ABLE TO CARE FOR HERSELF AT HOME. SHE ALREADY HAS HOME OXYGEN. S/W [facility]- HER ORDER IS FOR 3L 30/05. SHE REPORTS SHE HAS PORTABILITY. WE DISCUSSED HHC. PATIENT WOULD LIKE [facility] (TOP RATED). REFERRAL SENT AT THIS TIME. PATIENT REPORTS HER FAMILY ALL LIVES CLOSE AND CAN ASSIST NEEDED Initialized on 08/13/21 09:54 - END OF NOTE Assessment/Plan (1) Pneumonia Current Visit: Yes Status: Acute Qualifiers: Pneumonia type: due to group B Streptococcus Laterality: right Lung location: upper lobe of lung Qualified Code(s): J15.3 - Pneumonia due to streptococcus, group B Assessment & Plan: continue zosyn Code(s): J18.9 - PNEUMONIA, UNSPECIFIED ORGANISM (2) Lung mass Current Visit: Yes Status: Acute Assessment & Plan: pulm consulted and following Code(s): R91.8 - OTHER NONSPECIFIC ABNORMAL FINDING OF LUNG FIELD (3) Uncontrolled hypertension Current Visit: Yes Status: Acute Assessment & Plan: add amlodipine to current regimen including hydralazine, clonidine, metoprolol Code(s): I10 - ESSENTIAL (PRIMARY) HYPERTENSION
--- NOTE | 2021-08-14 08:35 | XRAY ---
Indication: Bronchitis. Comparison: One day earlier. Portable chest demonstrates continued diminishing right upper lobe masslike opacity. New moderate left base and mild right base infiltrate/atelectasis/effusions. Heart remains borderline enlarged with left pacemaker.
[2021-08-14] MEDS: HUMULIN R SQ PRN ×3 (09:08→21:47)
[2021-08-14] MEDS: ECOTRIN 81 MG PO SCH (10:42)
[2021-08-14] MEDS: hydroDIURIL 25 MG PO SCH (10:42)
[2021-08-14] MEDS: Klor Con 10 MEQ PO SCH ×2 (10:42→21:46)
[2021-08-14] MEDS: Lidoderm Patch 5% TOP SCH (10:42)
[2021-08-14] MEDS: Novolin N SQ SCH (10:42)
[2021-08-14] MEDS: NORVASC 5 MG PO SCH (10:42)
[2021-08-14] MEDS: BUSPAR 5 MG PO SCH (10:42)
[2021-08-14] MEDS: Toprol Xl 50 MG PO SCH (10:42)
[2021-08-14] MEDS: Protonix 20MG Tablet PO SCH (10:42)
[2021-08-14] MEDS: NORCO 5/325 MG PO PRN ×2 (17:17→21:46)
[2021-08-14] MEDS: DUONEB 0.5-3 MG/3 ml Neb IH PRN (19:12)
[2021-08-14] MEDS ORDERED: Xylocaine-Mpf 2% 5 Ml Vial ONE (20:23)
[2021-08-14] MEDS: Desyrel 150 MG PO SCH (21:46)
[2021-08-14] MEDS ORDERED: Toprol Xl 50 MG PO ONE ×2 (23:00)
[2021-08-15] MEDS: Sterile H2O 10 ml IJ SCH ×2 (01:57→11:07)
[2021-08-15] MEDS: solu-MEDROL IV SCH ×2 (01:57→11:07)
[2021-08-15] MEDS: NORCO 5/325 MG PO PRN ×3 (02:00→21:20)
[2021-08-15] MEDS: Catapres 0.1 MG PO SCH ×4 (02:08→21:21)
[2021-08-15] MEDS: Sodium Chloride 0.9% W/ 20 mEq KCl/LITER 1,000 ML IV SCH (04:21)
[2021-08-15] MEDS ORDERED: TROUGH DRUG LEVELS IJ ONE (04:30)
[2021-08-15 04:55] LABS: Hematocrit 36.1 % (35-47); Hemoglobin 11.5 gm/dl (12.0-16.0); Mean Cell Volume 82.2 fl (78-100); Mean Corpuscular Hemoglobin 26.2 pg (26-32); Mean Corpuscular Hgb Concent. 31.9 g/dl (32-36); Mean Platelet Volume 9.8 fl (7.5-11.0); Platelet Count 194 K/mm3 (150-450); Red Blood Count 4.39 M/mm3 (4.1-5.4); Red Cell Distribution Width 15.6 % (11.5-14.0); White Blood Count 10.3 K/mm3 (4.0-10.5)
[2021-08-15 04:59] LABS: ANION GAP 7.4 MEQ/L (5-15); BLOOD UREA NITROGEN 20 mg/dL (7-17); CHLORIDE 95 mmol/L (98-107); Calcium 8.1 mg/dL (8.4-10.2); Carbon Dioxide 34 mmol/L (22-30); Creatinine 1 0.73 mg/dL (0.52-1.04); EST GLOMERULAR FILTRATION RATE > 60.0 ML/MIN; Glucose 192 mg/dL (74-106); Potassium 4.2 mmol/L (3.5-5.1); SODIUM 132 mmol/L (137-145)
[2021-08-15] MEDS: Apresoline 25 MG TABLET PO SCH ×3 (05:17→17:26)
[2021-08-15] MEDS: Zosyn 2.25 GM 2.25 GM in Sodium Chloride 100ML MINI-BAG PLUS 100 ML IV SCH ×3 (05:17→20:05)
[2021-08-15 05:29] LABS: Lymphocytes 11 % (24-44); Monocyte 7 % (0.0-12.0); Neutrophils 82 % (36.0-66.0); Platelet Estimate NORMAL (NORMAL); Total Cells Counted 100
[2021-08-15] MEDS: VANCOMYCIN 1 GRAM/200 ML BAG 1 GM/200 ML PIGGYBACK IV SCH ×2 (05:39→17:21)
[2021-08-15] MEDS: DUONEB 0.5-3 MG/3 ml Neb IH PRN ×2 (09:43→20:46)
[2021-08-15] MEDS: PULMICORT 0.5 MG/2 ML RESPULES IH SCH ×2 (09:44→20:46)
[2021-08-15] MEDS: BUSPAR 5 MG PO SCH (11:08)
[2021-08-15] MEDS: ECOTRIN 81 MG PO SCH (11:08)
[2021-08-15] MEDS: NORVASC 5 MG PO SCH (11:08)
[2021-08-15] MEDS: Toprol Xl 50 MG PO SCH (11:08)
[2021-08-15] MEDS: hydroDIURIL 25 MG PO SCH (11:08)
[2021-08-15] MEDS: Protonix 20MG Tablet PO SCH (11:08)
[2021-08-15] MEDS: Klor Con 10 MEQ PO SCH ×2 (11:08→21:21)
[2021-08-15] MEDS: Novolin N SQ SCH (11:10)
[2021-08-15] MEDS: Lidoderm Patch 5% TOP SCH (13:13)
--- NOTE | 2021-08-15 13:46 | PCM.NOTE ---
Date and Time: 08/15/21 1335 Subjective Assessment: Patient is improving ,julius was dc'd and she is 1 person stand by assist up to bathroom. Is winded upon return from bathroom. Has pitting edema bilateral LE but states she usually does not have swollen legs. B/P is not controlled even with addition of Catapress and Apresoline to her home B/P meds.Discussed need to diureis to bring B/P down. She is anxious to go home but understands best to wait until B/P is down. Denies chest pain or palpitations. Denies cough or dyspnea at rest. Objective Exam General Appearance: no apparent distress Neurologic Exam: alert, oriented x 3, cooperative, normal mood/affect Skin Exam: warm, dry, pale Eye Exam: eyes nml inspection Ears, Nose, Throat Exam: normal ENT inspection, moist mucous membranes Respiratory Exam: diminished breath sounds (bases), rhonchi (few fine right upper posterior lung) Cardiovascular Exam: bradycardia (paced rate 62-66) Gastrointestinal/Abdomen Exam: soft, normal bowel sounds (nontender) Extremity Exam: other (edema 2/4 pitting bilateral pretibial and ankles,neg homans) OBJECTIVE DATA Vital Signs: Vital Signs - 24 hr Temp Pulse Resp BP BP Pulse Ox 08/15/21 12:14 98.1 F 61 18 170/80 95 08/15/21 09:47 62 18 92 L 08/15/21 07:25 97.9 F 64 20 184/75 92 L 08/15/21 04:40 98.1 F 66 16 166/66 92 L 08/15/21 00:58 97.8 F 62 16 159/69 96 08/14/21 21:00 97.6 F 62 16 153/67 96 08/14/21 19:14 60 20 91 L 08/14/21 17:00 97.5 F 62 24 176/77 96 Pain Assessment - Last Documented Pain Intensity [Back] 10 Pain Intensity 8 Pain Scale Used 0-10 Pain Scale Intake and Output: Intake & Output 08/13/21 08/14/21 08/15/21 08/16/21 11:59 11:59 11:59 11:59 Intake Total 9140 2787 4533 Output Total 345 126 5471 Balance 1080 5968 833 Weight 107.9 kg 112.5 kg 115.7 kg Lab Results: Lab Results-Last 24 Hours 08/14/21 08/14/21 08/15/21 Range/Units 16:44 21:26 04:45 WBC 10.3 (4.0-10.5) K/mm3 RBC 4.39 (4.1-5.4) M/mm3 Hgb 11.5 L (12.0-16.0) gm/dl Hct 36.1 (35-47) % MCV 82.2 (78-100) fl MCH 26.2 (26-32) pg MCHC 31.9 L (32-36) g/dl RDW 15.6 H (11.5-14.0) % Plt Count 194 (150-450) K/mm3 MPV 9.8 (7.5-11.0) fl Segmented Neutrophils 82 H (36.0-66.0) % Lymphocytes (Manual) 11 L (24-44) % Monocytes (Manual) 7 (0.0-12.0) % Platelet Estimate NORMAL (NORMAL) RBC Morphology NORMAL Sodium (137-145) mmol/L Potassium (3.5-5.1) mmol/L Chloride (98-107) mmol/L Carbon Dioxide (22-30) mmol/L Anion Gap (5-15) MEQ/L BUN (7-17) mg/dL Creatinine (0.52-1.04) mg/dL Estimated GFR ML/MIN Glucose (74-106) mg/dL POC Glucometer 342 H 335 H (74 to 106) mg/dL Calcium (8.4-10.2) mg/dL Vancomycin Trough (10-20) ug/mL 08/15/21 08/15/21 08/15/21 Range/Units 04:45 04:45 07:18 WBC (4.0-10.5) K/mm3 RBC (4.1-5.4) M/mm3 Hgb (12.0-16.0) gm/dl Hct (35-47) % MCV (78-100) fl MCH (26-32) pg MCHC (32-36) g/dl RDW (11.5-14.0) % Plt Count (150-450) K/mm3 MPV (7.5-11.0) fl Segmented Neutrophils (36.0-66.0) % Lymphocytes (Manual) (24-44) % Monocytes (Manual) (0.0-12.0) % Platelet Estimate (NORMAL) RBC Morphology Sodium 132 L (137-145) mmol/L Potassium 4.2 (3.5-5.1) mmol/L Chloride 95 L (98-107) mmol/L Carbon Dioxide 34 H (22-30) mmol/L Anion Gap 7.4 (5-15) MEQ/L BUN 20 H (7-17) mg/dL Creatinine 0.73 (0.52-1.04) mg/dL Estimated GFR > 60.0 ML/MIN Glucose 192 H (74-106) mg/dL POC Glucometer 168 H (74 to 106) mg/dL Calcium 8.1 L (8.4-10.2) mg/dL Vancomycin Trough 12.88 (10-20) ug/mL 08/15/21 Range/Units 11:57 WBC (4.0-10.5) K/mm3 RBC (4.1-5.4) M/mm3 Hgb (12.0-16.0) gm/dl Hct (35-47) % MCV (78-100) fl MCH (26-32) pg MCHC (32-36) g/dl RDW (11.5-14.0) % Plt Count (150-450) K/mm3 MPV (7.5-11.0) fl Segmented Neutrophils (36.0-66.0) % Lymphocytes (Manual) (24-44) % Monocytes (Manual) (0.0-12.0) % Platelet Estimate (NORMAL) RBC Morphology Sodium (137-145) mmol/L Potassium (3.5-5.1) mmol/L Chloride (98-107) mmol/L Carbon Dioxide (22-30) mmol/L Anion Gap (5-15) MEQ/L BUN (7-17) mg/dL Creatinine (0.52-1.04) mg/dL Estimated GFR ML/MIN Glucose (74-106) mg/dL POC Glucometer 291 H (74 to 106) mg/dL Calcium (8.4-10.2) mg/dL Vancomycin Trough (10-20) ug/mL Radiology Exams: Radiology Procedures Category Date Time Status CHEST 1 VIEW (PORTABLE) Routine Exams 08/14/21 06:00 Completed Assessment/Plan (1) Uncontrolled hypertension Current Visit: Yes Status: Acute Assessment & Plan: is edematous,IV lasix started and IV NS dc'd. Code(s): I10 - ESSENTIAL (PRIMARY) HYPERTENSION (2) Pneumonia Current Visit: Yes Status: Acute Qualifiers: Pneumonia type: due to group B Streptococcus Laterality: right Lung location: upper lobe of lung Qualified Code(s): J15.3 - Pneumonia due to streptococcus, group B Assessment & Plan: Dr Elizondo following -orders reviewed. WBC now is wnl. Code(s): J18.9 - PNEUMONIA, UNSPECIFIED ORGANISM (3) Lung mass Current Visit: Yes Status: Acute Assessment & Plan: biopsy negative for malignancy Code(s): R91.8 - OTHER NONSPECIFIC ABNORMAL FINDING OF LUNG FIELD
[2021-08-15] MEDS: Lasix 20 MG/2 ML IV SCH (17:21)
[2021-08-15] MEDS: Desyrel 150 MG PO SCH (21:21)
[2021-08-15] MEDS: HUMULIN R SQ PRN (21:55)
[2021-08-15] MEDS ORDERED: xanAX 0.25 MG PO PRN (23:45)
[2021-08-16] MEDS: TYLENOL 325 MG PO PRN (00:03)
[2021-08-16] MEDS: Apresoline 25 MG TABLET PO SCH ×3 (00:03→13:03)
[2021-08-16] MEDS: Zosyn 2.25 GM 2.25 GM in Sodium Chloride 100ML MINI-BAG PLUS 100 ML IV SCH ×3 (00:04→13:03)
[2021-08-16] MEDS: NORCO 5/325 MG PO PRN (03:11)
[2021-08-16] MEDS: Catapres 0.1 MG PO SCH (03:12)
[2021-08-16] MEDS: VANCOMYCIN 1 GRAM/200 ML BAG 1 GM/200 ML PIGGYBACK IV SCH (04:33)
[2021-08-16] MEDS: DUONEB 0.5-3 MG/3 ml Neb IH PRN (07:42)
[2021-08-16] MEDS: PULMICORT 0.5 MG/2 ML RESPULES IH SCH (07:43)
[2021-08-16 07:59] VITALS: O2SAT 92
[2021-08-16] MEDS ORDERED: DELTASONE 10 MG PO SCH (10:00)
[2021-08-16] MEDS ORDERED: Lasix 20 MG/2 ML IV SCH (10:00)
[2021-08-16 10:17] LABS: Hematocrit 35.8 % (35-47); Hemoglobin 11.6 gm/dl (12.0-16.0); Mean Cell Volume 81.5 fl (78-100); Mean Corpuscular Hemoglobin 26.4 pg (26-32); Mean Corpuscular Hgb Concent. 32.4 g/dl (32-36); Mean Platelet Volume 9.1 fl (7.5-11.0); Platelet Count 217 K/mm3 (150-450); Red Blood Count 4.39 M/mm3 (4.1-5.4); Red Cell Distribution Width 15.4 % (11.5-14.0); White Blood Count 14.3 K/mm3 (4.0-10.5)
[2021-08-16] MEDS: NORVASC 5 MG PO SCH (10:38)
[2021-08-16] MEDS: Lasix 20 MG/2 ML IV SCH (10:38)
[2021-08-16] MEDS: Klor Con 10 MEQ PO SCH (10:38)
[2021-08-16] MEDS: Novolin N SQ SCH (10:38)
[2021-08-16] MEDS: Protonix 20MG Tablet PO SCH (10:38)
[2021-08-16] MEDS: BUSPAR 5 MG PO SCH (10:38)
[2021-08-16] MEDS: hydroDIURIL 25 MG PO SCH (10:38)
[2021-08-16] MEDS: Toprol Xl 50 MG PO SCH (10:38)
[2021-08-16] MEDS: ECOTRIN 81 MG PO SCH (10:38)
[2021-08-16 11:06] LABS: ALBUMIN 2.7 g/dL (3.5-5.0); ALKALINE PHOSPHATASE 33 U/L (38-126); ANION GAP 7.9 MEQ/L (5-15); BLOOD UREA NITROGEN 20 mg/dL (7-17); CHLORIDE 93 mmol/L (98-107); Calcium 7.9 mg/dL (8.4-10.2); Carbon Dioxide 36 mmol/L (22-30); Creatinine 1 0.85 mg/dL (0.52-1.04); EST GLOMERULAR FILTRATION RATE > 60.0 ML/MIN; Glucose 188 mg/dL (74-106); NT PRO BNP 827 pg/mL (0-900); Potassium 3.7 mmol/L (3.5-5.1); SGOT/AST 18 U/L (14-36); SGPT/ALT 17 U/L (0-35); SODIUM 132 mmol/L (137-145); Total Protein 4.8 g/dL (6.3-8.2)
[2021-08-16 11:52] VITALS: BP 153/69; PULSE 74
[2021-08-16 14:01] LABS: Eosinophil 1 % (0.00-3.0); Lymphocytes 17 % (24-44); Monocyte 7 % (0.0-12.0); Neutrophils 75 % (36.0-66.0); Nucleated Red Blood Cell 1 %; Platelet Estimate NORMAL (NORMAL); Total Cells Counted 100
[2021-08-16] MEDS ORDERED: BENADRYL 25 MG CAPSULE ONE (14:25)
--- NOTE | 2021-08-16 14:43 | PCM.DCORD ---
- Discharge Disposition: HOME HEALTH SERVICE Condition: Good Prescriptions: New HydrALAzine HCL 25 MG TAB [Apresoline 25 MG TABLET] 25 mg PO Q8H PRN PRN #60 tablet PRN Reason: Hypertension Prednisone 10 mg [Deltasone 10 mg] 10 mg PO DAILY #30 tablet ALPRAZolam 0.25 MG [xanAX 0.25 MG] 0.25 mg PO BID PRN tablet PRN Reason: Anxiety Ciprofloxacin [Cipro 500 MG] 0 mg PO BIDAC #20 tablet Continue Potassium Chloride 10 Meq Tab* [Klor Con 10 MEQ] 10 meq PO BID Albuterol/Ipratropium 3ml Neb* [DUONEB 0.5-3 MG/3 ml Neb] 1 mg IH Q6H PRN PRN Reason: sob Budesonide 0.5 mg/2 ml [Pulmicort 0.5 mg/2 ml Respules] 1 mg IH DAILY Insulin NPH Human Recom [Novolin N] 44 units SQ DAILY Metoprolol Succinate 50 mg [Toprol Xl 50 MG] 50 mg PO DAILY Chlorthalidone 25 mg PO DAILY Trazodone HCl 150 mg PO HS Pantoprazole 20 mg [Protonix 20MG Tablet] 20 mg PO DAILY Buspirone HCl 5 mg [Buspar 5 mg] 5 mg PO DAILY Lidocaine 1 each TP DAILY Aspirin EC 81 mg [Ecotrin 81 mg] 81 mg PO DAILY Discontinued Hydralazine HCl 50 mg PO Q6H Additional Instructions: Patient needs to have a cat scan of chest without contrast on 08/28/21@ 11:00a.m. and follow up with 2 days later. [facility] HAS BEEN ARRANGED. THEY WILL CALL YOU TO MAKE AN APPOINTMENT TO SEE YOU. THEIR PHONE NUMBER IS [phone]. [facility] ORDER WAS SENT TO [facility]- THEY WILL DELIVER IT TO YOUR HOME. THEIR PHONE NUMBER IS [phone] Follow up with: ROSALINDA TRAN [ACTIVE STAFF] - LUIS MENDEZ MD [Primary Care Provider] -
--- NOTE | 2021-08-16 14:52 | PCM.DS ---
Discharge Summary Date of Admission: 08/10/21 06:25 Admitting Physician: ERENSTINE HAQUE Consults: Consults on Case 08/10/21 09:40 Consult Pulmonology ROUTINE Primary Care Provider: LUIS MENDEZ MD Allergies Allergies ceftriaxone [From Rocephin] Allergy (Severe, Verified 08/09/21 14:27) codeine Allergy (Verified 08/09/21 14:27) diphenhydramine HCl [From Benadryl] Allergy (Verified 08/09/21 14:27) hydromorphone HCl [From Dilaudid] Allergy (Verified 08/09/21 14:27) morphine Adverse Reaction (Mild, Verified 08/09/21 14:27) Hospital Summary - Vitals & Intake/Output Vital Signs: Vital Signs Temperature 97.7 F 08/16/21 11:51 Pulse Rate 74 08/16/21 11:51 Respiratory Rate 16 08/16/21 11:51 Blood Pressure 153/69 08/16/21 11:51 O2 Sat by Pulse Oximetry 92 L 08/16/21 11:51 Intake & Output: Intake & Output 08/14/21 08/15/21 08/16/21 08/17/21 11:59 11:59 11:59 11:59 Intake Total 6768 4533 3807 Output Total 800 3700 2250 Balance 5968 833 1557 Weight 112.5 kg 115.7 kg 115 kg - Lab Result Diagrams: 08/16/21 10:10 08/16/21 10:10 Lab Results-Last 24 Hrs: Lab Results-Last 24 Hours 08/15/21 08/15/21 08/16/21 Range/Units 17:11 20:38 07:25 WBC (4.0-10.5) K/mm3 RBC (4.1-5.4) M/mm3 Hgb (12.0-16.0) gm/dl Hct (35-47) % MCV (78-100) fl MCH (26-32) pg MCHC (32-36) g/dl RDW (11.5-14.0) % Plt Count (150-450) K/mm3 MPV (7.5-11.0) fl Segmented Neutrophils (36.0-66.0) % Lymphocytes (Manual) (24-44) % Monocytes (Manual) (0.0-12.0) % Eosinophils (Manual) (0.00-3.0) % Nucleated RBCs % Platelet Estimate (NORMAL) RBC Morphology Sodium (137-145) mmol/L Potassium (3.5-5.1) mmol/L Chloride (98-107) mmol/L Carbon Dioxide (22-30) mmol/L Anion Gap (5-15) MEQ/L BUN (7-17) mg/dL Creatinine (0.52-1.04) mg/dL Estimated GFR ML/MIN Glucose (74-106) mg/dL POC Glucometer 258 H 245 H 121 H (74 to 106) mg/dL Calcium (8.4-10.2) mg/dL Total Bilirubin (0.2-1.3) mg/dL AST (14-36) U/L ALT (0-35) U/L Alkaline Phosphatase (38-126) U/L NT-Pro-B Natriuret Pep (0-900) pg/mL Serum Total Protein (6.3-8.2) g/dL Albumin (3.5-5.0) g/dL 08/16/21 08/16/21 08/16/21 Range/Units 10:10 10:10 11:20 WBC 14.3 H (4.0-10.5) K/mm3 RBC 4.39 (4.1-5.4) M/mm3 Hgb 11.6 L (12.0-16.0) gm/dl Hct 35.8 (35-47) % MCV 81.5 (78-100) fl MCH 26.4 (26-32) pg MCHC 32.4 (32-36) g/dl RDW 15.4 H (11.5-14.0) % Plt Count 217 (150-450) K/mm3 MPV 9.1 (7.5-11.0) fl Segmented Neutrophils 75 H (36.0-66.0) % Lymphocytes (Manual) 17 L (24-44) % Monocytes (Manual) 7 (0.0-12.0) % Eosinophils (Manual) 1 (0.00-3.0) % Nucleated RBCs 1 % Platelet Estimate NORMAL (NORMAL) RBC Morphology NORMAL Sodium 132 L (137-145) mmol/L Potassium 3.7 (3.5-5.1) mmol/L Chloride 93 L (98-107) mmol/L Carbon Dioxide 36 H (22-30) mmol/L Anion Gap 7.9 (5-15) MEQ/L BUN 20 H (7-17) mg/dL Creatinine 0.85 (0.52-1.04) mg/dL Estimated GFR > 60.0 ML/MIN Glucose 188 H (74-106) mg/dL POC Glucometer 200 H (74 to 106) mg/dL Calcium 7.9 L (8.4-10.2) mg/dL Total Bilirubin 0.40 (0.2-1.3) mg/dL AST 18 (14-36) U/L ALT 17 (0-35) U/L Alkaline Phosphatase 33 L (38-126) U/L NT-Pro-B Natriuret Pep 827 (0-900) pg/mL Serum Total Protein 4.8 L (6.3-8.2) g/dL Albumin 2.7 L (3.5-5.0) g/dL Micro Results-Entire Visit: Microbiology 08/10/21 13:50 Urine Culture - Final Urine, Indwelling Catheter NO GROWTH Accuchecks Date 08/16/21 Date 08/16/21 Date 08/15/21 Time 07:30 Time 17:15 - Procedures and Test Procedures and Tests throughout Hospitalization: Therapy Orders & Screens 08/09/21 17:12 Oxygen Nasal Cannula 3 lpm Comment: 08/09/21 18:15 Respiratory Therapy Assessment DAILY Comment: Diagnosis: exac copd 08/10/21 02:45 BiPap/CPAP ROUTINE Comment: Diagnosis: exac copd 08/13/21 08:20 Qualify for Home Oxygen ROUTINE Comment: Diagnosis: RUL PNEUMONIA, LEUKOCYTOSIS,Right upper lobe mass 08/13/21 11:43 PT Eval & Treat ( Order) ONCE Reason for Eval:: GENERALIZED WEAKNESS- DESIRES TO RETURN HOME, WALKER? Diagnosis: RUL PNEUMONIA, LEUKOCYTOSIS,Right upper lobe mass Final Diagnosis/Problem List - Final Discharge Diagnosis/Problem (1) Uncontrolled hypertension Current Visit: Yes Status: Acute Code(s): I10 - ESSENTIAL (PRIMARY) HYPERTENSION (2) Pneumonia Current Visit: Yes Status: Acute Code(s): J18.9 - PNEUMONIA, UNSPECIFIED ORGANISM (3) Lung mass Current Visit: Yes Status: Acute Code(s): R91.8 - OTHER NONSPECIFIC ABNORMAL FINDING OF LUNG FIELD - Discharge Disposition: HOME HEALTH SERVICE Condition: Good Prescriptions: New HydrALAzine HCL 25 MG TAB [Apresoline 25 MG TABLET] 25 mg PO Q8H PRN PRN #60 tablet PRN Reason: Hypertension Prednisone 10 mg [Deltasone 10 mg] 10 mg PO DAILY #30 tablet ALPRAZolam 0.25 MG [xanAX 0.25 MG] 0.25 mg PO BID PRN tablet PRN Reason: Anxiety Ciprofloxacin [Cipro 500 MG] 0 mg PO BIDAC #20 tablet Continue Potassium Chloride 10 Meq Tab* [Klor Con 10 MEQ] 10 meq PO BID Albuterol/Ipratropium 3ml Neb* [DUONEB 0.5-3 MG/3 ml Neb] 1 mg IH Q6H PRN PRN Reason: sob Budesonide 0.5 mg/2 ml [Pulmicort 0.5 mg/2 ml Respules] 1 mg IH DAILY Insulin NPH Human Recom [Novolin N] 44 units SQ DAILY Metoprolol Succinate 50 mg [Toprol Xl 50 MG] 50 mg PO DAILY Chlorthalidone 25 mg PO DAILY Trazodone HCl 150 mg PO HS Pantoprazole 20 mg [Protonix 20MG Tablet] 20 mg PO DAILY Buspirone HCl 5 mg [Buspar 5 mg] 5 mg PO DAILY Lidocaine 1 each TP DAILY Aspirin EC 81 mg [Ecotrin 81 mg] 81 mg PO DAILY Discontinued Hydralazine HCl 50 mg PO Q6H Additional Instructions: Patient needs to have a cat scan of chest without contrast on 08/28/21@ 11:00a.m. and follow up with 2 days later. [facility]. THEY WILL CALL YOU TO MAKE AN APPOINTMENT TO SEE YOU. THEIR PHONE NUMBER IS [phone]. WALKER ORDER WAS SENT TO [facility]- THEY WILL DELIVER IT TO YOUR HOME. THEIR PHONE NUMBER IS [phone] Follow up with: ROSALINDA TRAN [ACTIVE STAFF] - LUIS MENDEZ MD [Primary Care Provider] -
[2021-08-16] MEDS ORDERED: Apresoline 25 MG TABLET PO SCH (15:00)
== END 2021-08-16 16:55 | disposition home health service (06) | DRG 304 ==
LOC: ED 14:22 → MED SURG 17:12 → OBSVTOIN 08-10 06:25
PROVIDERS: ADMIT Family Medicine; ATTEND Family Medicine
PROC: 0BBC3ZX Excision of Right Upper Lung Lobe, Percutaneous Approach, Diagnostic (ICD-10-PCS; principal; 2021-08-11)
DX: I10 Essential (primary) hypertension (principal); J18.9 Pneumonia, unspecified organism; R91.8 Other nonspecific abnormal finding of lung field; E11.9 Type 2 diabetes mellitus without complications; D72.829 Elevated white blood cell count, unspecified; M54.9 Dorsalgia, unspecified; J44.9 Chronic obstructive pulmonary disease, unspecified; Z99.81 Dependence on supplemental oxygen; Z86.73 Personal history of transient ischemic attack (TIA), and cerebral infarction without residual deficits; Z79.899 Other long term (current) drug therapy
CPT/HCPCS: 0241U; 32405; 32408; 36415; 36600; 71045; 71046; 71260; 80048; 80053; 80202; 80307; 81001; 82375; 82803; 82947; 83036; 83880; 85025; 85027; 85730; 87086; 93268; 94002; 94003; 94640; 94760; 94762; 96365; 97530; 99284; 99291; G0378; 36000; 88305; 99100; J1650; J1815; J1940; J1956; J2060; J2543; J2920; J3010; J3370; A9270-GY

== ENCOUNTER 2024-05-24 10:38 | Emergency (ER) | payer MEDICARE, OTHER ==
[2024-05-24 11:03] VITALS: TEMP 96.5
[2024-05-24] MEDS ORDERED: Sodium Chloride 0.9% 1000 ML 1,000 ML ONE (11:05)
[2024-05-24] MEDS: Sodium Chloride 0.9% 1000 ML 1,000 ML IV STA (11:07)
[2024-05-24 11:29] LABS: Appearance Cloudy (Clear); Bilirubin Negative (Negative); Blood Negative (Negative); Glucose, Urine >=1000 mg/dL (Negative); Ketones Negative (Negative); Leukocyte Esterase Negative (Negative); Nitrite Negative (Negative); Ph 5.5 (4.6-8.0); Protein,Urine Dip 30 (Negative); Urobilinogen 0.2 mg/dL (0.2)
[2024-05-24 11:34] LABS: WBC 0-2 /HPF (0-5)
[2024-05-24 11:41] LABS: Absolute Neutrophil Ct (ANC) 11.39 x10^3/uL (1.56-6.13); BASOPHIL % 0.5 % (0.1-1.2); Basophil (Absolute #) 0.07 x10^3/uL (0.01-0.08); Eosinophil % 2.5 % (0.7-5.8); Eosinophil (Absolute #) 0.37 x10^3/uL (0.04-0.36); Hematocrit 36.8 % (34.1-44.9); Hemoglobin 10.2 g/dL (11.2-15.7); IMMATURE GRAN # 0.06 x10^3u/L (0.001-0.031); IMMATURE GRAN % 0.4 % (0.001-0.429); Lymphocyte (Absolute #) 1.58 x10^3/uL (1.18-3.74); Lymphocytes % 10.8 % (19.3-51.7); Mean Cell Volume 77.6 fL (79.4-94.8); Mean Corpuscular Hemoglobin 21.5 pg (25.6-32.2); Mean Corpuscular Hgb Concent. 27.7 g/dL (32.2-35.5); Monocyte (Absolute #) 1.14 x10^3/uL (0.24-0.86); Monocytes % 7.8 % (4.7-12.5); Platelet Count 346 x10^3/uL (182-369); Red Blood Count 4.74 x10^6/uL (3.93-5.22); Red Cell Distribution Width 19.1 % (11.7-14.4); White Blood Count 14.6 x10^3/uL (3.98-10.04)
[2024-05-24 11:52] LABS: ADD URINE CULTURE? YES (NO); Bacteria Moderate /HPF (None Seen); Epithelial Cells Moderate /HPF (None Seen)
[2024-05-24 12:01] LABS: ALBUMIN 3.7 g/dL (3.5-5.0); ANION GAP 15.3 MEQ/L (5-15); BILIRUBIN,TOTAL 0.4 mg/dL (0.2-1.3); Calcium 9.6 mg/dL (8.4-10.2); Creatinine 1 1.3 mg/dL (0.52-1.04); EST GLOMERULAR FILTRATION RATE 43.2 ML/MIN; Potassium 5.4 mmol/L (3.5-5.1); Total Protein 7.3 g/dL (6.3-8.2)
--- NOTE | 2024-05-24 12:42 | XRAY ---
Indication: Chest pain. Multiple contiguous images obtained through the chest without contrast. Comparison: December 22, 2021 Study is degraded by mild motion artifact throughout. Lungs are now underinflated with diffuse scattered bilateral subsegmental atelectasis/scarring greatest in both lung bases. Stable small peripheral right upper lobe calcified granuloma. No focal infiltrate or effusion. Heart remains enlarged again with scattered coronary calcifications and left dual-lead pacemaker. Aorta again mildly arteriosclerotic without aneurysm. Stable tiny right hilar calcified nodes. No pathologic mediastinal lymphadenopathy. Bony thorax intact again with osteopenia and mild/moderate degenerative changes throughout the spine. CT abdomen/pelvis reported separately. Impression: 1. Diffuse respiration artifact. 2. Underinflated lungs with scattered bilateral subsegmental atelectasis/scarring. 3. Again chronic findings including cardiomegaly, arteriosclerotic disease, and old granulomatous disease.
--- NOTE | 2024-05-24 12:46 | XRAY ---
Indication: Pain. Multiple contiguous axial images obtained through the abdomen and pelvis without contrast. Comparison: None CT chest reported separately. Noncontrasted stomach and bowel loops appear nonobstructed with right mid abdomen ostomy. Cholecystectomy and hysterectomy. Incidental numerous tiny hepatic/splenic calcified granulomas and bilateral adrenal hypertrophy. No free fluid/air. Remaining liver, pancreas, spleen, adrenal glands, kidneys, ureters, and bladder are unremarkable for noncontrast exam. Mild scattered aortoiliac calcifications without AAA. Osseous structures intact with osteopenia, mild/moderate degenerative changes throughout spine greatest at lumbosacral junction, and mild degenerative changes both hips. No ventral or inguinal hernias. Impression: Chronic findings including right mid abdomen ostomy, bilateral adrenal hypertrophy, arteriosclerotic disease, chronic bony findings, and old granulomatous disease. No acute findings on this noncontrast exam.
--- NOTE | 2024-05-24 13:41 | ERPHSYRPT ---
- History of Present Illness Time Seen by Provider: 05/24/24 10:46 Source: patient, EMS, halfway records Exam Limitations: no limitations Patient Subjective Stated Complaint: Back pain Triage Nursing Assessment: Patient brought into ED per EMS and transferred to bed with assist of 3. Patient A+O X 3. Patient's skin pink, warm and dry. Seferino ricci resides at [facility] and EMS got a call for SOB. Patient wears home O2 at 3 liters per N/C. Patient denies SOB during triage, but states her lower back pain hurts 9/10. Patient complains of pain to vaginal area when urinating. Physician History: 73-year-old female with multiple medical problems including hypertension, diabetes mellitus, chronic respiratory failure on 2-3 L oxygen, difficulty ambulation, uses walker, permanent colostomy, chronic back pain, GERD presented in the ER with complaint of worsening low back pain and some difficulty urination. Patient denies any numbness tingling or weakness of lower extremities but has worsening pain 9/10 intensity in the low back without any fall or trauma. No radiation of pain. Denies any difficulty urination back pain and no loss of bowel control. Complaining of mild generalized weakness fatigue and tiredness as well. Patient is on 2 to 3 L oxygen normally and denies any shortness of breath currently. Denies any chest pain or palpitations. No fever or chills reported. Denies any abdominal pain or increased ostomy output. Allergies/Adverse Reactions: ceftriaxone [From Rocephin] Allergy (Severe, Verified 08/09/21 14:27) codeine Allergy (Verified 08/09/21 14:27) diphenhydramine HCl [From Benadryl] Allergy (Verified 08/09/21 14:27) hydromorphone HCl [From Dilaudid] Allergy (Verified 08/09/21 14:27) morphine Adverse Reaction (Mild, Verified 08/09/21 14:27) Home Medications: Potassium Chloride Tab* [Klor Con] 10 meq PO BID 04/03/20 [History] Albuterol/Ipratropium 3ml Neb* [DUONEB 0.5-3 MG/3 ml Neb] 1 mg IH Q6H PRN 08/09/21 [History] Aspirin EC 81 mg [Ecotrin 81 mg] 81 mg PO DAILY 08/09/21 [History] Budesonide 0.5 mg/2 ml [Pulmicort 0.5 mg/2 ml Respules] 1 mg IH DAILY 08/09/21 [History] Buspirone HCl 5 mg [Buspar 5 mg] 5 mg PO DAILY 08/09/21 [History] Chlorthalidone 25 mg PO DAILY 08/09/21 [History] Insulin NPH Human Recom [Novolin N] 44 units SQ DAILY 08/09/21 [History] Lidocaine 1 each TP DAILY 08/09/21 [History] Metoprolol Succinate 50 mg [Toprol Xl 50 MG] 50 mg PO DAILY 08/09/21 [History] Pantoprazole 20 mg [Protonix 20MG Tablet] 20 mg PO DAILY 08/09/21 [History] Trazodone HCl 150 mg PO HS 08/09/21 [History] Hx Tetanus, Diphtheria Vaccination/Date Given: (UNKNOWN) Hx Influenza Vaccination/Date Given: Yes Hx Pneumococcal Vaccination/Date Given: Yes Immunizations Up to Date: Yes Travel Risk - International Travel Have you traveled outside of the country in past 3 weeks: No - Emerging Infectious Disease Are you exhibiting symptoms associated with any current EIDs: No - Review of Systems Constitutional: Fatigue Eyes: No Symptoms Ears, Nose, & Throat: No Symptoms Respiratory: Dyspnea Cardiac: No Symptoms Abdominal/Gastrointestinal: No Symptoms Genitourinary Symptoms: Dysuria Musculoskeletal: Arthralgias, Back Pain Skin: No Symptoms Neurological: No Symptoms Endocrine: No Symptoms Hematologic/Lymphatic: No Symptoms - Past Medical History Pertinent Past Medical History: Yes Neurological History: Stroke, Other Cardiac History: Congestive Heart Failure, Hypertension Respiratory History: COPD Endocrine Medical History: Diabetes Type II Musculoskeletal History: Arthritis Psycho-Social History: Depression Other Medical History: APHASIA - Past Surgical History Past Surgical History: Yes Neuro Surgical History: Other Gastrointestinal: Appendectomy, Cholecystectomy Female Surgical History: Hysterectomy Other Surgical History: Colostomy - Social History Smoking Status: Never smoker Exposure to second hand smoke: No Drug Use: none Patient Lives Alone: No - Social Determinants of Health Will the patient participate in the screening: Yes Do you worry about a steady place to live?: No Do you have any problems with any of the following?: No known problems In the past 12 months,have you had to go without utilities?: No Transportation Issues: No Has anyone in your support network made you feel unsafe?: No Have you or anyone in your house had to go without enough: No Comment: Lives in [facility] - Nursing Vital Signs Nursing Vital Signs: Initial Vital Signs Pulse Rate 73 05/24/24 10:45 Respiratory Rate 24 05/24/24 10:45 Blood Pressure 74/42 05/24/24 10:45 O2 Sat by Pulse Oximetry 97 05/24/24 10:45 Pain Scale Pain Intensity 0 - Physical Exam General Appearance: no apparent distress, alert Eye Exam: PERRL/EOMI Ears, Nose, Throat Exam: normal ENT inspection Neck Exam: normal inspection, supple, full range of motion Respiratory Exam: normal breath sounds, lungs clear Cardiovascular Exam: regular rate/rhythm, normal heart sounds Gastrointestinal/Abdomen Exam: soft, normal bowel sounds, tenderness Extremity Exam: normal inspection, normal range of motion Neurologic Exam: alert, oriented x 3, cooperative, cell liner II-XII nml as tested Skin Exam: normal color SpO2 Interpretation: O2 applied SpO2: 95 O2 Delivery: Nasal Cannula (3L) - Course EKG Interpreted by Me: RATE (62), NORMAL AXIS, NORMAL INTERVALS, Q-wave, Other (Atrial paced rhythm) Ordered Tests: Active Orders 24 hr Category Date Time Status IV Insertion STAT Care 05/24/24 11:16 Active ABDOMEN AND PELVIS W/0 CONTRAS [CT] Stat Exams 05/24/24 11:16 Completed CHEST WITHOUT CONTRAST [CT] Stat Exams 05/24/24 11:16 Completed BLOOD CULTURE Stat Lab 05/24/24 11:30 Received CBC W DIFF Stat Lab 05/24/24 11:30 Completed CMP Stat Lab 05/24/24 11:30 Completed CULTURE,URINE Stat Lab 05/24/24 11:18 Received CULTURE,URINE Stat Lab 05/24/24 11:18 Received LIPASE Stat Lab 05/24/24 11:30 Completed Lactic Acid Stat Lab 05/24/24 11:34 Completed NT PRO BNPII Stat Lab 05/24/24 11:40 Completed TROPONIN Q4H Lab 05/24/24 11:30 Completed TROPONIN Q4H Lab 05/24/24 15:30 Ordered TROPONIN Q4H Lab 05/24/24 19:30 Ordered UA W/RFX UR CULTURE Stat Lab 05/24/24 11:18 Completed Medication Summary Discontinued Medications Generic Name Dose Route Start Last Admin Trade Name Gonsalo PRN Reason Stop Dose Admin Sodium Chloride 1,000 mls @ 999 mls/hr 05/24/24 11:06 05/24/24 12:11 Sodium Chloride 0.9% 1000 Ml IV 05/24/24 12:06 Infused .Q1H1M STA Infusion Sodium Chloride Confirm 05/24/24 11:05 Sodium Chloride 0.9% 1000 Ml Administered 05/24/24 11:06 Dose 1,000 mls @ ud .ROUTE .STK-MED ONE Acetaminophen 1,000 mg in 100 mls @ 400 mls/hr 05/24/24 13:50 05/24/24 14:18 Ofirmev IV 05/24/24 14:04 400 mls/hr 1HRPRIOR ONE Administration Acetaminophen Confirm 05/24/24 14:17 Ofirmev Administered 05/24/24 14:18 Dose 100 mls @ ud IV .STK-MED ONE Patiromer 8.4 gm 05/24/24 14:22 Patiromer Calcium Sorbitex 8.4 Gm Powd.Pack PO 05/24/24 14:23 STAT STA Lab/Rad Data: Laboratory Result Diagrams 05/24/24 11:30 05/24/24 11:30 Laboratory Results 05/24/24 05/24/24 05/24/24 Range/Units 11:40 11:34 11:30 WBC (3.98-10.04) x10^3/uL RBC (3.93-5.22) x10^6/uL Hgb (11.2-15.7) g/dL Hct (34.1-44.9) % MCV (79.4-94.8) fL MCH (25.6-32.2) pg MCHC (32.2-35.5) g/dL RDW (11.7-14.4) % Plt Count (182-369) x10^3/uL MPV (9.4-12.3) fL Gran % (34.0-71.1) % Immature Gran % (Auto) (0.001-0.429) % Nucleat RBC Rel Count (0.00-0.2) % Eos # (Auto) (0.04-0.36) x10^3/uL Immature Gran # (Auto) (0.001-0.031) x10^3u/L Absolute Lymphs (auto) (1.18-3.74) x10^3/uL Absolute Monos (auto) (0.24-0.86) x10^3/uL Absolute Nucleated RBC (0.00-0.012) x10^3u/L Lymphocytes % (19.3-51.7) % Monocytes % (4.7-12.5) % Eosinophils % (0.7-5.8) % Basophils % (0.1-1.2) % Absolute Granulocytes (1.56-6.13) x10^3/uL Basophils # (0.01-0.08) x10^3/uL Sodium (135-145) mmol/L Potassium (3.5-5.1) mmol/L Chloride (98-107) mmol/L Carbon Dioxide (22-30) mmol/L Anion Gap (5-15) MEQ/L BUN (7-17) mg/dL Creatinine (0.52-1.04) mg/dL Estimated GFR ML/MIN Glucose (74-106) mg/dL Lactic Acid 1.1 (0.4-2.0) Calcium (8.4-10.2) mg/dL Total Bilirubin (0.2-1.3) mg/dL AST (14-36) U/L ALT (0-35) U/L Alkaline Phosphatase (38-126) U/L Troponin I < 0.012 (0.000-0.033) ng/mL NT-Pro-B Natriuret Pep 112 (<300) pg/mL Serum Total Protein (6.3-8.2) g/dL Albumin (3.5-5.0) g/dL Lipase (23-300) U/L Urine Color (Yellow) Urine Appearance (Clear) Urine pH (4.6-8.0) Ur Specific [place] (1.005-1.030) Urine Protein (Negative) Urine Glucose (UA) (Negative) mg/dL Urine Ketones (Negative) Urine Blood (Negative) Urine Nitrite (Negative) Urine Bilirubin (Negative) Urine Urobilinogen (0.2) mg/dL Ur Leukocyte Esterase (Negative) U Hyaline Cast (Auto) (0-2) /LPF Urine Microscopic RBC (0-5) /HPF Urine Microscopic WBC (0-5) /HPF Ur Epithelial Cells (None Seen) /HPF Urine Bacteria (None Seen) /HPF Urine Culture Reflexed (NO) 05/24/24 05/24/24 05/24/24 Range/Units 11:30 11:30 11:18 WBC 14.6 H (3.98-10.04) x10^3/uL RBC 4.74 (3.93-5.22) x10^6/uL Hgb 10.2 L (11.2-15.7) g/dL Hct 36.8 (34.1-44.9) % MCV 77.6 L (79.4-94.8) fL MCH 21.5 L (25.6-32.2) pg MCHC 27.7 L (32.2-35.5) g/dL RDW 19.1 H (11.7-14.4) % Plt Count 346 (182-369) x10^3/uL MPV 9.0 L (9.4-12.3) fL Gran % 78.0 H (34.0-71.1) % Immature Gran % (Auto) 0.4 (0.001-0.429) % Nucleat RBC Rel Count 0.0 (0.00-0.2) % Eos # (Auto) 0.37 H (0.04-0.36) x10^3/uL Immature Gran # (Auto) 0.06 H (0.001-0.031) x10^3u/L Absolute Lymphs (auto) 1.58 (1.18-3.74) x10^3/uL Absolute Monos (auto) 1.14 H (0.24-0.86) x10^3/uL Absolute Nucleated RBC 0.00 (0.00-0.012) x10^3u/L Lymphocytes % 10.8 L (19.3-51.7) % Monocytes % 7.8 (4.7-12.5) % Eosinophils % 2.5 (0.7-5.8) % Basophils % 0.5 (0.1-1.2) % Absolute Granulocytes 11.39 H (1.56-6.13) x10^3/uL Basophils # 0.07 (0.01-0.08) x10^3/uL Sodium 136 (135-145) mmol/L Potassium 5.4 H (3.5-5.1) mmol/L Chloride 107 (98-107) mmol/L Carbon Dioxide 19 L (22-30) mmol/L Anion Gap 15.3 H (5-15) MEQ/L BUN 24 H (7-17) mg/dL Creatinine 1.30 H (0.52-1.04) mg/dL Estimated GFR 43.2 ML/MIN Glucose 139 H (74-106) mg/dL Lactic Acid (0.4-2.0) Calcium 9.6 (8.4-10.2) mg/dL Total Bilirubin 0.40 (0.2-1.3) mg/dL AST 15 (14-36) U/L ALT 12 (0-35) U/L Alkaline Phosphatase 91 (38-126) U/L Troponin I (0.000-0.033) ng/mL NT-Pro-B Natriuret Pep (<300) pg/mL Serum Total Protein 7.3 (6.3-8.2) g/dL Albumin 3.7 (3.5-5.0) g/dL Lipase 69 (23-300) U/L Urine Color Yellow (Yellow) Urine Appearance Cloudy A (Clear) Urine pH 5.5 (4.6-8.0) Ur Specific [place] 1.020 (1.005-1.030) Urine Protein 30 (Negative) Urine Glucose (UA) >=1000 A (Negative) mg/dL Urine Ketones Negative (Negative) Urine Blood Negative (Negative) Urine Nitrite Negative (Negative) Urine Bilirubin Negative (Negative) Urine Urobilinogen 0.2 (0.2) mg/dL Ur Leukocyte Esterase Negative (Negative) U Hyaline Cast (Auto) 3-5 A (0-2) /LPF Urine Microscopic RBC 3-5 (0-5) /HPF Urine Microscopic WBC 0-2 (0-5) /HPF Ur Epithelial Cells Moderate A (None Seen) /HPF Urine Bacteria Moderate A (None Seen) /HPF Urine Culture Reflexed YES (NO) - Progress Progress: improved Progress Note: 05/24/24 13:58 73-year-old with multiple medical problems including diabetes mellitus, hypertension is evaluated in the ER with low back pain. Patient has chronic shortness of breath which is not any worse than usual. Patient blood pressure was on the lower end, given fluid bolus, feeling better on reevaluation. She is given IV Tylenol for low back pain. Workup showed white count of 14, mild EDWIN with a creatinine of 1.3, mildly elevated potassium of 5.4. No UTI. Negative troponins. CT chest abdomen pelvis is negative for any acute intrathoracic and any abdominal pelvic findings. She has chronic degenerative changes in the spine but no fracture or subluxation. Patient has negative neuroexam in lower extremities. No cauda equina symptoms. She is advised to continue with Tylenol as needed and outpatient follow-up. Discussed signs symptoms of worsening needing return to ER which she seems understanding. Patient is not hypoxic and her routine oxygen, blood pressure improved and is stable for discharge. She is recommended to hold her potassium for the next couple of days, she is given one time dose of veltasa . Outpatient follow-up recommended. 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, [employer]/EMT - Diagnostic Testing Diagnostic test were ordered, analyzed, and reviewed by me: Yes Radiological Interpretation: Reviewed by me - Risk of complications The pt has a mod risk of morbidity or mortality based on: Need for prescription drug management - Departure Departure Disposition: Home Clinical Impression: Back pain, EDWIN (acute kidney injury), General weakness, Hyperkalemia Condition: Stable Critical Care Time: No Referrals: ENVIVE,ENVIVE [Primary Care Provider] - Follow up with PCP 1 day Instructions: Chronic Pain (DC) Additional Instructions: increase hydration, tylenol as needed for apin , hold your potassium for couple of days and recheck potassium , return for worsening pain or if having numbness/weakness of lower extremities, / lossof bowel / bladder control.
[2024-05-24] MEDS ORDERED: OFIRMEV 100 ML IV ONE (14:17)
[2024-05-24] MEDS: OFIRMEV 1,000 MG/100 ML ML IV ONE (14:18)
[2024-05-24] MEDS ORDERED: VELTASSA PO ONE (14:31)
[2024-05-24] MEDS: VELTASSA PO STA (14:32)
[2024-05-24 14:46] VITALS: BP 114/46; PULSE 61; RESP 23; O2SAT 96
[2024-05-24 15:02] LABS: Slide Review 1 YES
== END 2024-05-24 14:56 | disposition home or self-care (01) ==
LOC: ED 10:38
DX: M54.50 Low back pain, unspecified (principal); N17.9 Acute kidney failure, unspecified; R53.1 Weakness; E87.5 Hyperkalemia; E11.9 Type 2 diabetes mellitus without complications; I11.0 Hypertensive heart disease with heart failure; I50.9 Heart failure, unspecified; Z79.4 Long term (current) use of insulin; Z79.899 Other long term (current) drug therapy; Z99.81 Dependence on supplemental oxygen
CPT/HCPCS: 36000; 36415; 71250; 74176; 80053; 81001; 83605; 83690; 83880; 84484; 85025; 87040; 87086; 93005; 99284

== ENCOUNTER 2024-12-16 23:29 | Emergency (ER) | payer MEDICARE, OTHER ==
--- NOTE | 2024-12-16 23:43 | ERPHSYRPT ---
- History of Present Illness Historian: patient Exam Limitations: no limitations Physician History: Patient had some chest pain. This occurred at her assisted living area. She thinks it may have lasted 5 minutes or so. They gave her some nitro at the assisted living and evidently her heart rate went up then they called EMS. She is pain-free right now. She is still a bit tachycardic she is around 130. It is in a sinus rhythm. She is not having any dyspnea. She is a COPD patient and is always on oxygen at home. Activities at Onset: none Location: substernal Chest Pain Radiation: no radiation Severity of Pain-Max: moderate Severity of Pain-Current: none Modifying Factors: Improves With: nothing Associated Symptoms: denies symptoms Nitro Today/Relief: 0.4 mg x 1 Aspirin Treatment Today: no aspirin today Allergies/Adverse Reactions: ceftriaxone [From Rocephin] Allergy (Severe, Verified 12/16/24 23:54) codeine Allergy (Verified 12/16/24 23:54) cortisone Allergy (Verified 12/17/24 01:32) diphenhydramine HCl [From Benadryl] Allergy (Verified 12/16/24 23:54) hydromorphone HCl [From Dilaudid] Allergy (Verified 12/16/24 23:54) lorazepam [From Ativan] Allergy (Verified 12/17/24 01:32) nalbuphine [From Nubain] Allergy (Verified 12/17/24 01:32) morphine Adverse Reaction (Mild, Verified 12/16/24 23:54) fentanyl Adverse Reaction (Verified 12/17/24 01:32) Home Medications: Acetaminophen [Pain Relief] 650 mg PO Q6H PRN PRN 12/17/24 [History] Albuterol Sulfate 0.63 mg IH Q6H PRN PRN 12/17/24 [History] Amitriptyline HCl 50 mg PO HS 12/17/24 [History] Aspirin [Aspirin EC] 81 mg PO DAILY 12/17/24 [History] Atorvastatin Calcium 80 mg PO HS 12/17/24 [History] Carboxymethylcellulose Sodium [Artificial Tears 15 ML] 1 drop OP BID 12/17/24 [History] Carvedilol 12.5 mg [Coreg 12.5 mg] 12.5 mg PO BID 12/17/24 [History] Cholecalciferol (Vitamin D3) [Vitamin D3] 50,000 units PO WEEKLY 12/17/24 [History] Cholecalciferol (Vitamin D3) [Vitamin D] 1,000 unit PO HS 12/17/24 [H istory] Clopidogrel Bisulfate [Clopidogrel] 75 mg PO DAILY 12/17/24 [History] Donepezil HCl 10 mg [Aricept 10 MG] 10 mg PO HS 12/17/24 [History] Empagliflozin [Jardiance] 10 mg PO DAILY 12/17/24 [History] Furosemide [Lasix] 40 mg PO DAILY 12/17/24 [History] Gabapentin 300 mg PO TID 12/17/24 [History] Hydrocodone/Acetaminophen [Hydrocodone-Acetamin 5-325 mg] 1 tab PO HS 12/17/24 [History] Hydrocodone/Acetaminophen [Hydrocodone-Acetamin 5-325 mg] 1 tab PO Q6H PRN PRN 12/17/24 [History] Insulin Aspart [Insulin Aspart Flexpen] 100 unit SQ UD 12/17/24 [History] Insulin Glargine [Lantus Insulin] 20 unit SQ BID 12/17/24 [History] Ipratropium/Albuterol Sulfate [Iprat-Albut 0.5-3(2.5) mg/3 ml] 1 inhaler IH Q6H PRN PRN 12/17/24 [History] Loperamide HCl [Imodium A-D] 2 mg PO Q6H PRN PRN 12/17/24 [History] Loratadine 10 mg [Claritin 10 mg] 10 mg PO DAILY 12/17/24 [History] Losartan Potassium 100 mg PO DAILY 12/17/24 [History] Memantine HCl 10 mg PO BID 12/17/24 [History] Menthol [Biofreeze] 1 applic TOP BID 12/17/24 [History] Mometasone Furoate [Asmanex] 200 mcg IH BID 12/17/24 [History] Nitroglycerin 0.4 mg Tablet [Nitrostat 0.4 MG Tablet] 0.4 mg SL DAILY PRN PRN 12/17/24 [History] Nystatin 100,000 unit TOP BID 12/17/24 [History] Oxybutynin Chloride [Oxybutynin Chloride ER] 5 mg PO DAILY 12/17/24 [History] Pantoprazole 20 mg [Protonix 20MG Tablet] 20 mg PO DAILY 12/17/24 [History] Roflumilast [Daliresp] 500 mg PO DAILY 12/17/24 [History] Saccharomyces Boulardii 250 mg PO DAILY 12/17/24 [History] Tiotropium [place] Inhaler [Spiriva 18 Mcg/Cap Inhaler] 2 puff IH DAILY 12/17/24 [History] Trazodone HCl 100 mg PO HS 12/17/24 [History] Zinc Oxide 1 applic TOP DAILY PRN PRN 12/17/24 [History] Zinc Oxide Ointment 30 gm 1 applic TOP BID 12/17/24 [History] glucagon HCL [Glucagon Emergency Kit] 1 mg PO DAILY PRN PRN 12/17/24 [History] predniSONE [Prednisone] 10 mg PO BID 12/17/24 [History] Hx Tetanus, Diphtheria Vaccination/Date Given: (UNKNOWN) Hx Influenza Vaccination/Date Given: Yes Hx Pneumococcal Vaccination/Date Given: Yes Travel Risk - Emerging Infectious Disease Are you exhibiting symptoms associated with any current EIDs: No - Past Medical History Pertinent Past Medical History: Yes Neurological History: Stroke, Other Cardiac History: Congestive Heart Failure, Hypertension Respiratory History: COPD Endocrine Medical History: Diabetes Type II Musculoskeletal History: Arthritis Psycho-Social History: Depression Other Medical History: APHASIA - Past Surgical History Past Surgical History: Yes Neuro Surgical History: Other Gastrointestinal: Appendectomy, Cholecystectomy Female Surgical History: Hysterectomy Other Surgical History: Colostomy - Social History Smoking Status: Never smoker Exposure to second hand smoke: No Drug Use: none Patient Lives Alone: No - Social Determinants of Health Will the patient participate in the screening: Yes Do you worry about a steady place to live?: No In the past 12 months,have you had to go without utilities?: No Transportation Issues: No Has anyone in your support network made you feel unsafe?: No Have you or anyone in your house had to go without enough: No Comment: Lives in ECF - Nursing Vital Signs Nursing Vital Signs: Initial Vital Signs Temperature 98.2 F 12/16/24 23:37 Pulse Rate 123 H 12/16/24 23:37 Respiratory Rate 23 12/16/24 23:37 Blood Pressure 142/89 12/16/24 23:37 O2 Sat by Pulse Oximetry 96 12/16/24 23:37 Pain Scale Pain Intensity 5 - Physical Exam General Appearance: no apparent distress Respiratory Exam: normal breath sounds, lungs clear, No respiratory distress Cardiovascular Exam: regular rate/rhythm, tachycardia Gastrointestinal/Abdomen Exam: soft, normal bowel sounds, No tenderness Neurologic Exam: oriented x 3, cooperative, hyperion analyst II-XII nml as tested, normal mood/affect, nml cerebellar function Skin Exam: normal color, warm, dry SpO2 Interpretation: normal SpO2: 95 O2 Delivery: Nasal Cannula - Course EKG Interpreted by Me: RATE, Sinus Rhythm, NORMAL QRS, NORMAL ST-T Ordered Tests: Active Orders 24 hr Category Date Time Status 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 STAT Care 12/16/24 23:44 Active EKG-ER Only STAT Care 12/16/24 23:43 Active IV Insertion STAT Care 12/16/24 23:43 Active CHEST 1 VIEW (PORTABLE) Stat Exams 12/16/24 23:43 Taken CHEST WITH CONTRAST [CT] Stat Exams 12/17/24 02:15 Completed BLOOD CULTURE Stat Lab 12/17/24 01:45 Received BMP Stat Lab 12/16/24 23:56 Completed BNPII [NT PRO BNPII] Stat Lab 12/17/24 00:40 Completed CBC W DIFF Stat Lab 12/16/24 23:56 Completed Lactic Acid Stat Lab 12/17/24 01:27 Completed TROPONIN Q4H Lab 12/16/24 23:56 Completed TROPONIN Q4H Lab 12/17/24 01:30 Completed TROPONIN Q4H Lab 12/17/24 07:45 Ordered Medication Summary Discontinued Medications Generic Name Dose Route Start Last Admin Trade Name Freq PRN Reason Stop Dose Admin Aspirin 324 mg 12/16/24 23:43 12/17/24 00:07 Aspirin 81 Mg Tab.Chew PO 12/16/24 23:44 324 mg STAT ONE Administration Aspirin Confirm 12/17/24 00:05 Aspirin 81 Mg Tab.Chew Administered 12/17/24 00:06 Dose 324 mg .ROUTE .STK-MED ONE Lab/Rad Data: Laboratory Result Diagrams 12/16/24 23:56 12/16/24 23:56 Laboratory Results 0212/17/24 12/17/24 Range/Units 01:30 01:27 00:40 WBC (3.98-10.04) x10^3/uL RBC (3.93-5.22) x10^6/uL Hgb (11.2-15.7) g/dL Hct (34.1-44.9) % MCV (79.4-94.8) fL MCH (25.6-32.2) pg MCHC (32.2-35.5) g/dL RDW (11.7-14.4) % Plt Count (182-369) x10^3/uL MPV (9.4-12.3) fL Gran % (34.0-71.1) % Immature Gran % (Auto) (0.001-0.429) % Nucleat RBC Rel Count (0.00-0.2) % Eos # (Auto) (0.04-0.36) x10^3/uL Immature Gran # (Auto) (0.001-0.031) x10^3u/L Absolute Lymphs (auto) (1.18-3.74) x10^3/uL Absolute Monos (auto) (0.24-0.86) x10^3/uL Absolute Nucleated RBC (0.00-0.012) x10^3u/L Lymphocytes % (19.3-51.7) % Monocytes % (4.7-12.5) % Eosinophils % (0.7-5.8) % Basophils % (0.1-1.2) % Absolute Granulocytes (1.56-6.13) x10^3/uL Basophils # (0.01-0.08) x10^3/uL Sodium (135-145) mmol/L Potassium (3.5-5.1) mmol/L Chloride (98-107) mmol/L Carbon Dioxide (22-30) mmol/L Anion Gap (5-15) MEQ/L BUN (7-17) mg/dL Creatinine (0.52-1.04) mg/dL Estimated GFR ML/MIN Glucose (74-106) mg/dL Lactic Acid 2.7 H (0.4-2.0) Calcium (8.4-10.2) mg/dL Troponin I 0.101 H* (0.000-0.033) ng/mL NT-Pro-B Natriuret Pep 1340 (<300) pg/mL Slides for Path Review 12/16/24 12/16/24 12/16/24 Range/Units 23:56 23:56 23:56 WBC 20.8 H (3.98-10.04) x10^3/uL RBC 5.62 H (3.93-5.22) x10^6/uL Hgb 14.2 (11.2-15.7) g/dL Hct 45.3 H (34.1-44.9) % MCV 80.6 (79.4-94.8) fL MCH 25.3 L (25.6-32.2) pg MCHC 31.3 L (32.2-35.5) g/dL RDW 19.3 H (11.7-14.4) % Plt Count 167 L (182-369) x10^3/uL MPV 9.5 (9.4-12.3) fL Gran % 81.6 H (34.0-71.1) % Immature Gran % (Auto) 2.4 H (0.001-0.429) % Nucleat RBC Rel Count 0.0 (0.00-0.2) % Eos # (Auto) 0.06 (0.04-0.36) x10^3/uL Immature Gran # (Auto) 0.49 H (0.001-0.031) x10^3u/L Absolute Lymphs (auto) 1.65 (1.18-3.74) x10^3/uL Absolute Monos (auto) 1.51 H (0.24-0.86) x10^3/uL Absolute Nucleated RBC 0.00 (0.00-0.012) x10^3u/L Lymphocytes % 8.0 L (19.3-51.7) % Monocytes % 7.3 (4.7-12.5) % Eosinophils % 0.3 L (0.7-5.8) % Basophils % 0.4 (0.1-1.2) % Absolute Granulocytes 16.96 H (1.56-6.13) x10^3/uL Basophils # 0.08 (0.01-0.08) x10^3/uL Sodium 132 L (135-145) mmol/L Potassium 4.3 (3.5-5.1) mmol/L Chloride 94 L (98-107) mmol/L Carbon Dioxide 33 H (22-30) mmol/L Anion Gap 9.0 (5-15) MEQ/L BUN 38 H (7-17) mg/dL Creatinine 1.08 H (0.52-1.04) mg/dL Estimated GFR 53.6 ML/MIN Glucose 264 H (74-106) mg/dL Lactic Acid (0.4-2.0) Calcium 9.5 (8.4-10.2) mg/dL Troponin I 0.097 H* (0.000-0.033) ng/mL NT-Pro-B Natriuret Pep (<300) pg/mL Slides for Path Review YES - Progress Progress: re-examined Air Movement: good Progress Note: Patient was stable throughout stay. A CT of the chest was done which showed Evidence of a pulmonary embolism. I am going to go ahead and send the patient to [facility]. I spoke with Dr. Colby as an ER to ER transfer Blood Culture(s) Obtained: Yes Antibiotics given: No Medical Desision Making - Independent Historian Additional History obtained from: Child - Risk of complications The pt has a mod risk of morbidity or mortality based on: Need for prescription drug management The pt has a high risk of morbidity or mortality based on: Drug therapy requiring intensive monitoring for toxicity - Departure Departure Disposition: Transfer Clinical Impression: Pulmonary embolism Condition: Stable Critical Care Time: No Referrals: ENVIVE,ENVIVE [Primary Care Provider] - Follow up/PCP as directed
[2024-12-16 23:53] VITALS: TEMP 98.2
[2024-12-16 23:58] LABS: Absolute Neutrophil Ct (ANC) 16.96 x10^3/uL (1.56-6.13); BASOPHIL % 0.4 % (0.1-1.2); Basophil (Absolute #) 0.08 x10^3/uL (0.01-0.08); Eosinophil % 0.3 % (0.7-5.8); Eosinophil (Absolute #) 0.06 x10^3/uL (0.04-0.36); Hematocrit 45.3 % (34.1-44.9); Hemoglobin 14.2 g/dL (11.2-15.7); IMMATURE GRAN # 0.49 x10^3u/L (0.001-0.031); IMMATURE GRAN % 2.4 % (0.001-0.429); Lymphocyte (Absolute #) 1.65 x10^3/uL (1.18-3.74); Mean Cell Volume 80.6 fL (79.4-94.8); Mean Corpuscular Hemoglobin 25.3 pg (25.6-32.2); Mean Corpuscular Hgb Concent. 31.3 g/dL (32.2-35.5); Mean Platelet Volume 9.5 fL (9.4-12.3); Monocyte (Absolute #) 1.51 x10^3/uL (0.24-0.86); Monocytes % 7.3 % (4.7-12.5); Neutrophil % 81.6 % (34.0-71.1); Platelet Count 167 x10^3/uL (182-369); Red Blood Count 5.62 x10^6/uL (3.93-5.22); Red Cell Distribution Width 19.3 % (11.7-14.4); White Blood Count 20.8 x10^3/uL (3.98-10.04)
[2024-12-17] MEDS ORDERED: BABY ASPIRIN 81 MG CHEW ONE (00:05)
[2024-12-17] MEDS: BABY ASPIRIN 81 MG CHEW PO ONE (00:07)
[2024-12-17 00:15] LABS: Calcium 9.5 mg/dL (8.4-10.2); Creatinine 1 1.08 mg/dL (0.52-1.04); EST GLOMERULAR FILTRATION RATE 53.6 ML/MIN; Potassium 4.3 mmol/L (3.5-5.1)
[2024-12-17 00:40] LABS: Slide Review 1 YES
--- NOTE | 2024-12-17 03:54 | XRAY ---
CLINICAL HISTORY: CHEST PAIN COMPARISON: May 30. TECHNIQUE: Contiguous axial images were obtained from the neck base through the upper abdomen following intravenous administration of contrast material. If IV contrast material had not been administered, the likelihood of detecting abnormalities relevant to the patient's condition would have been substantially decreased. In addition, sagittal and coronal reconstructions were performed. CT scan was performed according to ALARA (as low as reasonable achievable). FINDINGS: Evidence of intraluminal hypodense filling defect is noted involving distal part of right main pulmonary artery extending into the anterior branch of right upper lobar artery and right middle lobar artery- suggestive of pulmonary embolism. Mild dilatation of pulmonary trunk ,bilateral main pulmonary artery up to subsegmental level with mild tortuosity - suggest possibility of pulmonary arterial hypertension. Small calcified granuloma is within right upper lobe few subpleural atelectatic bands are noted involving both lungs; predominantly lower lobes The central airways are patent. There are no pleural effusions. No pneumothorax is seen. No axillary, hilar, or mediastinal adenopathy is identified. The visualized thyroid is unremarkable. The heart, aorta are of normal size and configuration. No pericardial effusion is identified. Imaged portions of the upper abdomen shows multiple calcified granuloma involving spleen and liver. No aggressive appearing osseous lesions are identified. IMPRESSION: 1. Evidence of intraluminal hypodense filling defect is noted involving distal part of right main pulmonary artery extending into the anterior branch of right upper lobar artery and right middle lobar artery- suggestive of pulmonary embolism. 2. Mild dilatation of pulmonary trunk ,bilateral main pulmonary artery up to subsegmental level with mild tortuosity - suggest possibility of pulmonary arterial hypertension. -stable. 3. Small calcified granuloma is within right upper lobe with few subpleural atelectatic bands are noted involving both lungs; predominantly lower lobes-stable. Electronically Signed by: Abiodun Bansal MD. (12/17/2024 03:50:00 EST)
[2024-12-17 05:38] VITALS: O2SAT 95
[2024-12-17 06:10] VITALS: BP 121/87; PULSE 114; RESP 23
--- NOTE | 2024-12-17 08:41 | XRAY ---
Indication: Chest pain. Comparison: August 14, 2021 Portable chest now sidebent and rotated. Heart remains enlarged again with left pacemaker. Worsening moderate bibasilar infiltrates/atelectasis/effusions concerning for cardiac decompensation/CHF. Superimposed pneumonia not completely excluded. Bony thorax intact again with osteopenia and degenerative changes.
== END 2024-12-17 05:58 | disposition short-term general hospital (02) ==
LOC: ED 23:29
DX: I26.99 Other pulmonary embolism without acute cor pulmonale (principal); R77.8 Other specified abnormalities of plasma proteins; R00.0 Tachycardia, unspecified; I11.0 Hypertensive heart disease with heart failure; I50.9 Heart failure, unspecified; E11.9 Type 2 diabetes mellitus without complications; Z79.02 Long term (current) use of antithrombotics/antiplatelets; Z79.84 Long term (current) use of oral hypoglycemic drugs; Z79.891 Long term (current) use of opiate analgesic; Z79.4 Long term (current) use of insulin; Z79.52 Long term (current) use of systemic steroids; Z79.899 Other long term (current) drug therapy; Z99.81 Dependence on supplemental oxygen
CPT/HCPCS: 36415; 71045; 71260; 80048; 83605; 83880; 84484; 85025; 87040; 93005; 93041; 99285; A9270-GY